=== PATIENT | male | born 1950 | race Caucasian/White ===

== ENCOUNTER → 2024-04-11 06:20 | Day surgery (SDC) | payer MEDICARE, SELFPAY ==
[2024-04-11 08:31] LABS: Glucose - Point of Care 100 mg/dl (70-99)
== END ==
LOC: GI 06:20
PROVIDERS: ATTENDING PHYSICIAN Specialist
DX: Z12.11 Encounter for screening for malignant neoplasm of colon (principal); K63.5 Polyp of colon; K57.30 Diverticulosis of large intestine without perforation or abscess without bleeding; K64.8 Other hemorrhoids; D50.9 Iron deficiency anemia, unspecified; K22.89 Other specified disease of esophagus; K31.7 Polyp of stomach and duodenum; K31.89 Other diseases of stomach and duodenum; Z86.0101 Personal history of adenomatous and serrated colon polyps; K29.50 Unspecified chronic gastritis without bleeding
CPT/HCPCS: 45380; 43239; 88305; 82962; 88342

== ENCOUNTER 2024-09-28 15:31 | Inpatient (IN) | payer MEDICARE, SELFPAY ==
[2024-09-28] VITALS (11 sets, daily range): BP systolic 93–112; BP diastolic 53–64; BMI 23.5
--- NOTE | 2024-09-28 10:48 | ED.GENMED ---
History of Present Illness
<Tiffanie Miguel PA-C - Last Filed: 09/28/24 19:20>
General
Chief Complaint: Abdominal Symptoms
Source: patient and spouse
Exam Limitations: none
Time Seen by Provider: 09/28/24 10:25
Nursing documentation reviewed up to this point in time: agreed with
History of Present Illness
History of Present Illness:
Patient is a 74-year-old male with history hypertension, diabetes presenting to the emergency department via EMS for evaluation of 5 days of diarrhea and generalized weakness. Patient's states he has had multiple episodes of nonbloody diarrhea
since Tuesday. He has had 1 episode of vomiting. She reports that he has had very little appetite and no desire to drink water. Patient does report generalized abdominal discomfort, as well. Patient denies any associated fever, chills, chest
pain, or shortness of breath. Patient denies any urinary symptoms.
She did contact his primary care who recommended that she give him Imodium which has not seemed to help.
There have been no known sick contacts. No recent antibiotic use. No undercooked seafood or well water.
Past History
<Tiffanie Miguel PA-C - Last Filed: 09/28/24 19:20>
Past History
ED Past Medical History: HTN
ED Past Surgical History: Urological
Social History
Tobacco: Non-smoker
Personal:
Living: with family
Review of Systems
<Tiffanie Miguel PA-C - Last Filed: 09/28/24 19:20>
Review of Systems
Allergies reviewed?: Yes
All Other Systems: ROS reviewed and negative except as documented in HPI and ROS
Phy Exam
<Tiffanie Miguel PA-C - Last Filed: 09/28/24 19:20>
Physical Exam
Physical Exam:
Vitals: BP soft. Afebrile
General: Patient is generally weak appearing
Skin: Warm and dry, no rashes or lesions
Head: Normocephalic, atraumatic
Eyes: Sclera nonicteric. EOMs intact. No nystagmus.
Throat: Dry mucous membranes. Protecting airway
Neck: Normal ROM, no cervical spine tenderness, no meningismus
Cardiac: Regular rate and rhythm, no murmurs.
Pulm: Normal respiratory effort, no wheezes, rales, rhonchi heard on exam.
Abdomen: Abdomen soft. Mild diffuse abdominal tenderness. No rebound tenderness or guarding.
Extremities: No evidence of cyanosis or edema. Palpable DP pulses bilaterally
Neuro: AAOx3. Grossly intact.
Psychiatric: Normal affect.
Course
<Tiffanie Miguel PA-C - Last Filed: 09/28/24 19:20>
Orders/Labs/Results
Orders:
Orders
09/28/24 10:47
Electrocardiogram (*1) Urgent
Reason for Study: Fatigue / Weakness
EKG- Treatment ONCE
09/28/24 10:54
Complete Blood Count/With Diff Urgent
Comprehensive Metabolic Panel Urgent
Magnesium Urgent
Manual Differential Urgent
09/28/24 11:35
Abdomen/Pelvis wo Contrast CT [CT Abd/pelvis Wo Iv Cont] Urgent
Comment:
Reason For Exam: Acute renal failure; diffuse abdominal pain
09/28/24 11:36
Bladder Scan- Treatment ONCE
09/28/24 11:40
Potassium Chloride [KCl] 20 meq PO NOW STA
09/28/24 11:41
Ny Placement- Treatment ONCE
Reason for insertion: Acute Kidney Injury
09/28/24 11:58
Osmolality, Random Urine Urgent
Date Specimen was Collected: 09/28/24
Time Specimen was Collected: 11:52
Comment: ADD ON
Protein/Creat Ratio (Random) Urgent
Date Specimen was Collected: 09/28/24
Time Specimen was Collected: 11:52
Comment: ADD ON
Urinalysis Reflex To Culture Urgent
Date Specimen was Collected: 09/28/24
Time Specimen was Collected: 11:52
Urine Microscopic Reflex Cult Urgent
Urine Sodium Urgent
Date Specimen was Collected: 09/28/24
Time Specimen was Collected: 11:52
Comment: ADD ON
Urine Culture Urgent
SHONDA Source: U
Specimen Description:
Date Specimen was Collected: 09/28/24
Time Specimen was Collected: 11:52
09/28/24 12:15
Blood Culture Q30M
SHONDA Source: Blood/Venous
Specimen Description:
09/28/24 12:36
Add On- LAB Urgent
Tests Added?: Osmolality random urine, urine protein/creat ratio, urine sodium
09/28/24 12:37
NEPHROLOGY CONSULT Urgent
Consulting Provider: Leobardo Madrid
Was physician already notified: Yes
09/28/24 12:45
Blood Culture Q30M
SHONDA Source: Blood/Venous
Specimen Description:
09/28/24 13:45
0.9% Sodium Chloride 1000 ml [Nss] 1,000 ml IV BOLUS
Piperacillin/Tazo 3.375 Gram [Zosyn] 3.375 gram in 50 ml IV NOW
09/28/24 14:37
Norovirus by PCR Routine
SHONDA Source: Feces/Stool
Specimen Description:
STOOL [C difficile Antigen & Toxins] Routine
SHONDA Source: Feces/Stool
Specimen Description:
Stool Culture Routine
SHONDA Source: Feces/Stool
Specimen Description:
Stool For WBC Routine
SHONDA Source: Feces/Stool
Specimen Description:
09/28/24 14:39
Admit/Transfer Patient As Directed
Co-Sign Provider:
Level of Care: Inpatient admission
Assign to:: Telemetry
Physician / Group: fausto lucia
Diagnosis: ARF 2/2 dehydration, diarrhea with acute colitis, hypoKalemia
Reason for Telemetry: Arrhythmia
Date to Stop Telemetry: 10/01/24
Time to Stop Telemetry: 11:00
Reason for Hospitalization: ARF 2/2 dehydration, diarrhea with acute colitis, hypoKalemia
Expected length of stay greater than two midnights?: Yes
ELOS- Estimated Length of Stay in days: 4
I certify the patient meets the requirements for IP care: Yes
Code Status As Directed
Resuscitation Status: Full Code
09/28/24 14:43
PRN Pain Medication Management As Directed
May give lesser potent ordered pain med per pt: Yes
preference::
Protocol:: Medication orders for pain may be administered in a
manner that supports deferring to patient preference
when the pt is:
- Requesting an ordered lesser potent pain medication.
Least to most potent pain medications are defined
as: acetaminophen < NSAID < tramadol < opioids
(morphine, oxycodone, hydromorphone).
- Requesting a lesser dose of the same medication IF
ORDERED.
- Requesting a less intrusive route of administration
if both routes are prescribed by the provider (PO <
IV).
09/28/24 Dinner
BRAT
At Your Request: Limited Participation
09/28/24 17:26
0.9% Sodium Chloride 1000 ml [Nss] 1,000 ml IV 150 mls/hr
Acetaminophen [Tylenol] 650 mg PO Q4HPRN PRN
Trimethobenzamide [Tigan] 200 mg IM Q6HPRN PRN
09/28/24 17:26
Activity As Directed
Activity Level: With Assistance
Ny Catheter [Catheter- Indwelling] As Directed
Reason for insertion: I&O's Critical Care
Comment: Acute renal failure
Assess insertion reason daily.Remove if no longer applicable: Yes
Intake/ Output As Directed
Frequency: Per unit guidelines
Precautions As Directed
Type of Precautions: Contact
Comment: Until stool studies back
Vital Signs As Directed
Frequency: Per unit guidelines
Weight As Directed
Frequency: Daily
Ot Eval And Treat Routine
Pt Eval And Treat Routine
Activity Level: With Assistance
DX Deep Vein Thrombosis Video Routine
09/28/24 18:00
Ferrous Sulfate [Feosol] 325 mg PO QPM
09/28/24 20:00
Heparin 5,000 units SC Q12
Multivitamin [Theragran] 0.5 tablet PO BID
Piperacillin/Tazo 2.25 Gram [Zosyn] 2.25 grams in 50 ml IV Q6H
09/29/24 06:00
Complete Blood Count/With Diff IN AM
Comprehensive Metabolic Panel IN AM
09/30/24 06:00
Complete Blood Count/With Diff IN AM
Comprehensive Metabolic Panel IN AM
10/01/24 06:00
Complete Blood Count/With Diff IN AM
Comprehensive Metabolic Panel IN AM
10/01/24 11:00
DC Protocol for Telemetry ONCE
10/02/24 06:00
Complete Blood Count/With Diff IN AM
Comprehensive Metabolic Panel IN AM
10/03/24 06:00
Complete Blood Count/With Diff IN AM
Comprehensive Metabolic Panel IN AM
Abnormal Lab Results
09/28/24 09/28/24
10:54 11:58
RBC 4.20 L 10^6/uL
(4.70-6.10)
Hct 36.2 L %
(39.0-52.0)
MPV 11.2 H fL
(7.4-10.4)
Abs Neuts (Manual) 6.6 H 10^3/uL
(1.4-6.5)
Segmented Neutrophils 26 L %
(42-75)
Band Neutrophils 44 H %
(0-3)
Lymphocytes (Manual) 17 L %
(20-51)
Sodium 131 L mmol/L
(135-145)
Potassium 2.8 L mmol/L
(3.5-5.1)
Chloride 92 L mmol/L
(98-107)
Carbon Dioxide 15 L mmol/L
(22-30)
BUN 145 H* mg/dl
(9-20)
Creatinine 8.1 H* mg/dL
(0.7-1.3)
Glucose 153 H mg/dl
(70-99)
Calcium 8.0 L mg/dl
(8.4-10.2)
AST 16 L U/L
(17-59)
Total Protein 6.1 L g/dl
(6.3-8.2)
Urine Ketones 1+ A
(Negative)
Ur Occult Blood Reflex 2+ A
(Negative)
Urine Bilirubin 2+ A
(Negative)
Leukocyte Esterase Rfl 3+ A
(Negative)
Urine RBC 7-10 A /HPF
(0-2)
Urine WBC (Reflex) 21-25 A /HPF
(0-5)
Urine Bacteria (Reflex) Many A
(Negative)
Urine Sodium 8 L mmol/L
(30-90)
Urine Albumin (Reflex) 2+ A
(Neg - Trace)
09/28/24 10:54
09/28/24 10:54
Vital Signs
Initial and Last Documented VS:
Initial Vital Signs
Temp Pulse Resp BP Pulse Ox
97.5 F 70 14 103/53 98
09/28/24 10:38 09/28/24 10:38 09/28/24 10:38 09/28/24 10:38 09/28/24 10:38
Last Documented Vital Signs
Temp Pulse Resp BP Pulse Ox
98.0 F 75 16 104/60 99
09/28/24 17:15 09/28/24 17:15 09/28/24 17:15 09/28/24 17:15 09/28/24 17:15
<Rodolfo Flannery MD - Last Filed: 09/28/24 13:48>
Orders/Labs/Results
Orders:
Orders
09/28/24 10:47
Electrocardiogram (*1) Urgent
Reason for Study: Fatigue / Weakness
EKG- Treatment ONCE
09/28/24 10:54
Complete Blood Count/With Diff Urgent
Comprehensive Metabolic Panel Urgent
Magnesium Urgent
Manual Differential Urgent
09/28/24 11:35
Abdomen/Pelvis wo Contrast CT [CT Abd/pelvis Wo Iv Cont] Urgent
Comment:
Reason For Exam: Acute renal failure; diffuse abdominal pain
09/28/24 11:36
Bladder Scan- Treatment ONCE
09/28/24 11:40
Potassium Chloride [KCl] 20 meq PO NOW STA
09/28/24 11:41
Ny Placement- Treatment ONCE
Reason for insertion: Acute Kidney Injury
09/28/24 11:58
Osmolality, Random Urine Urgent
Date Specimen was Collected: 09/28/24
Time Specimen was Collected: 11:52
Comment: ADD ON
Protein/Creat Ratio (Random) Urgent
Date Specimen was Collected: 09/28/24
Time Specimen was Collected: 11:52
Comment: ADD ON
Urinalysis Reflex To Culture Urgent
Date Specimen was Collected: 09/28/24
Time Specimen was Collected: 11:52
Urine Microscopic Reflex Cult Urgent
Urine Sodium Urgent
Date Specimen was Collected: 09/28/24
Time Specimen was Collected: 11:52
Comment: ADD ON
Urine Culture Urgent
SHONDA Source: U
Specimen Description:
Date Specimen was Collected: 09/28/24
Time Specimen was Collected: 11:52
09/28/24 12:15
Blood Culture Q30M
SHONDA Source: Blood/Venous
Specimen Description:
09/28/24 12:36
Add On- LAB Urgent
Tests Added?: Osmolality random urine, urine protein/creat ratio, urine sodium
09/28/24 12:37
NEPHROLOGY CONSULT Urgent
Consulting Provider: Leobardo Madrid
Was physician already notified: Yes
09/28/24 12:45
Blood Culture Q30M
SHONDA Source: Blood/Venous
Specimen Description:
09/28/24 13:45
0.9% Sodium Chloride 1000 ml [Nss] 1,000 ml IV BOLUS
Piperacillin/Tazo 3.375 Gram [Zosyn] 3.375 gram in 50 ml IV NOW
09/28/24 14:37
Norovirus by PCR Routine
SHONDA Source: Feces/Stool
Specimen Description:
STOOL [C difficile Antigen & Toxins] Routine
SHONDA Source: Feces/Stool
Specimen Description:
Stool Culture Routine
SHONDA Source: Feces/Stool
Specimen Description:
Stool For WBC Routine
SHONDA Source: Feces/Stool
Specimen Description:
09/28/24 14:39
Admit/Transfer Patient As Directed
Co-Sign Provider:
Level of Care: Inpatient admission
Assign to:: Telemetry
Physician / Group: fausto lucia
Diagnosis: ARF 2/2 dehydration, diarrhea with acute colitis, hypoKalemia
Reason for Telemetry: Arrhythmia
Date to Stop Telemetry: 10/01/24
Time to Stop Telemetry: 11:00
Reason for Hospitalization: ARF 2/2 dehydration, diarrhea with acute colitis, hypoKalemia
Expected length of stay greater than two midnights?: Yes
ELOS- Estimated Length of Stay in days: 4
I certify the patient meets the requirements for IP care: Yes
Code Status As Directed
Resuscitation Status: Full Code
09/28/24 14:43
PRN Pain Medication Management As Directed
May give lesser potent ordered pain med per pt: Yes
preference::
Protocol:: Medication orders for pain may be administered in a
manner that supports deferring to patient preference
when the pt is:
- Requesting an ordered lesser potent pain medication.
Least to most potent pain medications are defined
as: acetaminophen < NSAID < tramadol < opioids
(morphine, oxycodone, hydromorphone).
- Requesting a lesser dose of the same medication IF
ORDERED.
- Requesting a less intrusive route of administration
if both routes are prescribed by the provider (PO <
IV).
09/28/24 Dinner
BRAT
At Your Request: Limited Participation
09/28/24 17:26
0.9% Sodium Chloride 1000 ml [Nss] 1,000 ml IV 150 mls/hr
Acetaminophen [Tylenol] 650 mg PO Q4HPRN PRN
Trimethobenzamide [Tigan] 200 mg IM Q6HPRN PRN
09/28/24 17:26
Activity As Directed
Activity Level: With Assistance
Ny Catheter [Catheter- Indwelling] As Directed
Reason for insertion: I&O's Critical Care
Comment: Acute renal failure
Assess insertion reason daily.Remove if no longer applicable: Yes
Intake/ Output As Directed
Frequency: Per unit guidelines
Precautions As Directed
Type of Precautions: Contact
Comment: Until stool studies back
Vital Signs As Directed
Frequency: Per unit guidelines
Weight As Directed
Frequency: Daily
Ot Eval And Treat Routine
Pt Eval And Treat Routine
Activity Level: With Assistance
DX Deep Vein Thrombosis Video Routine
09/28/24 18:00
Ferrous Sulfate [Feosol] 325 mg PO QPM
09/28/24 20:00
Heparin 5,000 units SC Q12
Multivitamin [Theragran] 0.5 tablet PO BID
Piperacillin/Tazo 2.25 Gram [Zosyn] 2.25 grams in 50 ml IV Q6H
09/29/24 06:00
Complete Blood Count/With Diff IN AM
Comprehensive Metabolic Panel IN AM
09/30/24 06:00
Complete Blood Count/With Diff IN AM
Comprehensive Metabolic Panel IN AM
10/01/24 06:00
Complete Blood Count/With Diff IN AM
Comprehensive Metabolic Panel IN AM
10/01/24 11:00
DC Protocol for Telemetry ONCE
10/02/24 06:00
Complete Blood Count/With Diff IN AM
Comprehensive Metabolic Panel IN AM
10/03/24 06:00
Complete Blood Count/With Diff IN AM
Comprehensive Metabolic Panel IN AM
Abnormal Lab Results
09/28/24 09/28/24
10:54 11:58
RBC 4.20 L 10^6/uL
(4.70-6.10)
Hct 36.2 L %
(39.0-52.0)
MPV 11.2 H fL
(7.4-10.4)
Abs Neuts (Manual) 6.6 H 10^3/uL
(1.4-6.5)
Segmented Neutrophils 26 L %
(42-75)
Band Neutrophils 44 H %
(0-3)
Lymphocytes (Manual) 17 L %
(20-51)
Sodium 131 L mmol/L
(135-145)
Potassium 2.8 L mmol/L
(3.5-5.1)
Chloride 92 L mmol/L
(98-107)
Carbon Dioxide 15 L mmol/L
(22-30)
BUN 145 H* mg/dl
(9-20)
Creatinine 8.1 H* mg/dL
(0.7-1.3)
Glucose 153 H mg/dl
(70-99)
Calcium 8.0 L mg/dl
(8.4-10.2)
AST 16 L U/L
(17-59)
Total Protein 6.1 L g/dl
(6.3-8.2)
Urine Ketones 1+ A
(Negative)
Ur Occult Blood Reflex 2+ A
(Negative)
Urine Bilirubin 2+ A
(Negative)
Leukocyte Esterase Rfl 3+ A
(Negative)
Urine RBC 7-10 A /HPF
(0-2)
Urine WBC (Reflex) 21-25 A /HPF
(0-5)
Urine Bacteria (Reflex) Many A
(Negative)
Urine Sodium 8 L mmol/L
(30-90)
Urine Albumin (Reflex) 2+ A
(Neg - Trace)
09/28/24 10:54
09/28/24 10:54
Vital Signs
Initial and Last Documented VS:
Initial Vital Signs
Temp Pulse Resp BP Pulse Ox
97.5 F 70 14 103/53 98
09/28/24 10:38 09/28/24 10:38 09/28/24 10:38 09/28/24 10:38 09/28/24 10:38
Last Documented Vital Signs
Temp Pulse Resp BP Pulse Ox
98.0 F 75 16 104/60 99
09/28/24 17:15 09/28/24 17:15 09/28/24 17:15 09/28/24 17:15 09/28/24 17:15
<Tiffanie Miguel PA-C - Last Filed: 09/28/24 19:20>
MDM/Problems Addressed
Differential Diagnosis Includes:
Not limited to: Acute dehydration, electrolyte imbalance, viral gastroenteritis, UTI, pyelonephritis, etc.
MDM/Problems Addressed:
74-year-old male with history as documented presenting with generalized weakness after 4 days of profuse diarrhea. No known fevers or urinary symptoms. BP soft, otherwise vital signs stable. Physical exam as above. Patient generally weak
appearing with dry mucous membranes. Abdomen benign. No focal neurologic deficits. Cardio/pulmonary assessment unremarkable. Will send basic labs, magnesium, urinalysis. Will obtain CT imaging abdomen/pelvis. Will give IV fluids.
Update: Labs resulted. Significant for acute renal failure with creatinine 8.1 and elevated BUN likely secondary to acute dehydration from GI losses. Patient also has a metabolic acidosis with hypokalemia of 2.8. CBC significant for bandemia.
Bladder scan did not suggest any significant urinary retention�although given evidence of acute renal failure�a Ny catheter was placed. Will obtain CT abdomen/pelvis without contrast to ensure no obstructive process contributing to acute renal
failure. Patient has been borderline hypotensive -we will continue IV fluids and start Zosyn to cover for infectious process in the setting of bandemia. Will give 20 p.o. potassium. Nephrology consult placed.
Update: CT findings consistent with colitis, no evidence of urinary obstruction. Patient will require admission given acute renal failure and metabolic acidosis likely secondary to GI losses from profound diarrheal illness. Patient accepted to
hospital service in stable condition.
Chronic conditions affecting care:
Hypertension, diabetes
Acute Exacerbation and/or Progression of Chronic Illness:
Acutely hyperglycemic
<Tiffanie Miguel PA-C - Last Filed: 09/28/24 19:20>
*Radiology
Radiology exam reviewed: preliminary read by ED provider (CT reviewed by nm-no ureteral obstruction) and radiology read reviewed
*Pulse Oximetry
Patient hypoxic: no
*EKG
Interpreted by ED Provider?: Yes
EKG Intrepretation Date: 09/28/24
Interpretation: abnormal
Comparison EKG: changes noted
Heart Rate: 67
Rate: normal
Rhythm: sinus, PVC's and sinus arrhythmia
[place]: left axis deviation
Interval: first degree heart block and long QT
QRS Pattern: normal QRS
Ischemia: non-specific ST changes
*[employer] Interpretation
Rate: normal
Interpretation: normal
Heart Rate: 74
Rhythm: sinus
*Critical Care Note
Total Time (30-74mins, 75-104mins- exclusive of procedures): Not Applicable
<Tiffanie Miguel PA-C - Last Filed: 09/28/24 19:20>
Patient Management
Discussion with other providers: Hospitalist and [employer]el[employer] (Case discussed with nephrology)
Escalation/DeEscalation of care consider admission/obs:
Admit indicated
ED Attending Note
<Tiffanie Miguel PA-C - Last Filed: 09/28/24 19:20>
-
Portions of this chart may have been created with voice recognition software.� Occasional wrong word or��sound alike� substitutions may have occurred due to the inherent limitations of voice recognition software.
<Rodolfo Flannery MD - Last Filed: 09/28/24 13:48>
ED Attending Note
Patient seen and examined by attending physician: Yes
ED Attending Note:
I have seen and evaluated the patient with a [id number] encounter. I have spoken to the advance practicer provider and involved in the medical history, the physical exam, medical decision making.
Evaluation and management service: agree unless noted differently below.
Results interpretation: agree unless noted differently below.
Focused HPI: 74-year-old male with history as noted presents with his for evaluation of increased weakness and confusion in the setting of recent diarrheal illness. Patient has had profuse watery diarrhea x 5 days. Nonbloody. They trialed
Imodium and patient vomited after taking Imodium and has continued to have diarrhea. No significant abdominal pain, no flank pain. Today was increasingly confused which prompted to finally bring him to the ER.
Physical exam: Awake and alert, oriented for me. No distress. Hypertensive otherwise acceptable vital signs. Abdomen soft nontender. Mucous membranes dry.
Medical Decision Makin-year-old male presents for evaluation of increased weakness and confusion in the setting of profuse diarrhea. Vitals and exam as above. Suspect that he is acutely dehydrated. Labs were sent off including a CBC which
showed significant bandemia. Blood culture sent off. CMP shows renal failure with a creatinine of 8 and a BUN of 145 likely from profound dehydration. Bladder scan shows no retention. Will place Ny catheter to monitor I's and O's closely in
the setting of renal failure. Hypokalemic to 2.8 from GI losses�will replete. CT abdomen pelvis appears to show diffuse colitis no clear ureteral obstruction. Read pending. Will plan to cover with antibiotics given hypotension and bandemia.
Continue fluid resuscitation. Consult to nephrology. Admission to hospitalist.
Discharge Plan
Departure
Patient Disposition: Admit
Date of Disposition: 09/28/24
Time of Disposition: 13:46
Presentation/result/management discussed w/ accepting MD/DO: Hospitalist
Discharge Problem:
Acute renal failure, Hypokalemia, Colitis
Interventions
Interventions:
*Risk Screen - Suicide Last Done: 09/28/24 10:38
*General Assessment Last Done: 09/28/24 10:38
*Neglect/Abuse Screening Last Done: 09/28/24 10:38
*ED- Fall Risk Assessment Last Done: 09/28/24 10:38
*ED COVID-19 Vaccine History Last Done: 09/28/24 10:38
*Nursing Disposition Last Done: 09/28/24 17:08
AG-Ozopuc-Vdzpocoebw Assessment Last Done: 09/28/24 10:38
Discharge Date and Time
Discharge Date/Time: 09/28/24 17:09
[2024-09-28 11:19] LABS: Hematocrit 36.2 % (39.0-52.0); Mean Corp Hgb Conc. 35.9 g/dL (33.0-37.0); Mean Corpuscular Volume 86.2 fL (80.0-94.0); Mean Platelet Volume 11.2 fL (7.4-10.4); Platelet Count 215 10^3/uL (130-400); Red Cell Dist. Width 13.1 % (11.5-14.5); White Blood Cell Count 9.5 10^3/uL (4.8-10.8)
[2024-09-28 11:31] LABS: ALT (SGPT) 15 U/L (0-50); AST (SGOT) 16 U/L (17-59); Albumin 3.8 g/dl (3.5-5.0); Alkaline Phosphatase 60 U/L (38-126); Carbon Dioxide 15 mmol/L (22-30); Chloride 92 mmol/L (98-107); Estimated Creatinine Clearance 9 ml/min; Glucose 153 mg/dl (70-99); Potassium 2.8 mmol/L (3.5-5.1); Sodium 131 mmol/L (135-145); Total Bilirubin 0.7 mg/dl (0.2-1.3); Total Protein 6.1 g/dl (6.3-8.2); eGFR 6.34
[2024-09-28 11:49] LABS: Blood Urea Nitrogen 145 mg/dl (9-20)
[2024-09-28] MEDS: KCL 20 MEQ PO (11:55)
[2024-09-28 12:06] LABS: Absolute Neutrophils -Man Diff 6.6 10^3/uL (1.4-6.5); Atypical Lymphocytes 1 %; Band Neutrophils 44 % (0-3); Lymphocytes 17 % (20-51); Metamyelocytes 3 % (-); Monocytes 9 % (2-9); Normal RBC Morphology Yes; Platelets Checked Yes; Segmented Neutrophils 26 % (42-75); Total Cells Counted 100
[2024-09-28 12:28] LABS: Urine Albumin 2+ (Neg - Trace); Urine Bilirubin 2+ (Negative); Urine Character Cloudy (Clear); Urine Color Yellow; Urine Glucose Negative (Negative); Urine Ketone 1+ (Negative); Urine Leukocyte 3+ (Negative); Urine Nitrite Negative (Negative); Urine Occult Blood 2+ (Negative); Urine Urobilinogen 1+ (Neg - 1+)
[2024-09-28 13:35] LABS: Osmolality Urine 325 mOsm/kg (300-900)
[2024-09-28] MEDS: ZOSYN 50 IV ×2 (13:52→21:05)
[2024-09-28] MEDS: NSS 1000 IV ×2 (13:53→18:19)
--- NOTE | 2024-09-28 13:54 | HPS.HSE ---
Addendum entered and electronically signed by Shira Gaston DO 09/28/24 16:28:
The patient has been seen and examined. I have reviewed and discussed the patient with Nuzhat as per below, and I agree with her history and physical and assessment and plan of care as per below.
The patient is a 74-year-old gentleman complaining of severe diarrhea approximately 10 times per day that is brown and watery over the past 5 days. He denies any recent travel nor exposure to anyone's been sick. His noticed his blood pressure
was in the 70s yesterday. He is also been experiencing anorexia and generalized weakness with some generalized abdominal discomfort.
His blood pressure in the ED has been low 93/58 mmHg
ED treatment-20 mill equivalents of potassium, IV Zosyn, IV fluids
Physical exam
The patient is lying in bed and ill-appearing, dry mucous membranes, regular rate and rhythm no murmurs rubs or gallops, lungs clear to auscultation bilaterally no wheezes rales rhonchi, benign abdomen without peritoneal signs
Labs remarkable for potassium 2.8 creatinine 8.1 CO2 15 BUN [address] of the abdomen pelvis shows dilated air and fluid-filled loops of small bowel suggesting enterocolitis versus adynamic ileus
Assessment and plan of care
# Acute renal failure is likely secondary to severe dehydration from massive amounts of diarrhea, prerenal azotemia, creatinine 8.1 with underlying baseline renal function less than 1.0
- Nephrology consultation is appreciated to solve the patient in the ED
- Will continue IV fluids at 150 mL/h and repeat labs in the morning. Maintain Ny catheter, intake and output monitoring, and avoid nephrotoxic agents, renally adjust IV Zosyn
# Acute severe diarrhea, concern is for infectious enterocolitis
- Continue IV fluids and IV Zosyn
- Monitor symptoms, treat symptomatically and monitor laboratory closely
# Hypokalemia
-Replete potassium, monitor labs labs and check magnesium
# See below for additional assessment and plan
Original Note:
Family Physician
-
Family Physician: Miguel Nevarez
Chief Complaint
-
Diarrhea x 5 days
History of Present Illness
74-year-old male complaining of 5 days of diarrhea 8-10 times a day brown watery with generalized weakness. His states yesterday there was some mucus in his watery diarrhea, but no blood . He has had 1 episode of vomiting 2 hours after taking
Imodium 2 tablets yesterday. He also took 1 Imodium in the evening. He has had persistent hiccups since yesterday. He also has very little appetite and no desire to drink fluids and complains of generalized abdominal discomfort, but increased to
the lower right pelvis. He denies fever, chills, chest pain, palpitations, cough, shortness of breath, urinary symptoms, PCP. His reports she contacted his primary care provider who recommended Imodium which has not seemed to help. He has
had no recent antibiotic use or raw foods or travel. His states she has prepared all their meals they have not eaten out they have not eaten any fish during Lent she states. She is also not sick with any diarrheal symptoms. In the ER he was
noted to be in acute renal failure secondary to dehydration with CT showing colitis. He has past medical history of hypertension, DM2, BPH, ex-smoker,Bladder surgery with precancerous lesions removed.
Medical History
Past Medical History
Past Medical History: Reports Other
Additional Past Medical History:
HTN
DM 2
BPH
Bladder surgery with precancerous lesions removed
Past Surgical History: Reports Other
Additional Past Surgical History:
Bladder surgery with precancerous lesions removed
Social History
Tobacco: Non-smoker
Alcohol: Occasional (1 glass of wine on the weekends)
Drug: None
Personal:
Living: With Family ()
Employment: Retired
Family History
Family History: Not pertinent
Allergies / Home Medications
Allergies reflects when Allergies were last updated in [facility].
Home Medications with original date entered in [facility]
Allergy/Medication List:
Allergies
Allergy/AdvReac Type Severity Reaction Status Date / Time
No Known Allergies Allergy Verified 01/14/19 11:34
Home Medications
ascorbic acid (vitamin C) 500 mg tablet (Vitamin C) 500 mg PO BID 09/28/24
aspirin 81 mg tablet,delayed release 81 mg PO DAILY 09/28/24
ferrous sulfate 250 mg (50 mg iron) tablet,extended release 250 mg PO QPM 09/28/24
flaxseed oil-omega 3,6,9-fatty acids 1,300 mg-670 mg-155 mg capsule 1 cap PO DAILY 09/28/24
glucosamine sulf dipot chlr,msm,chond 550 mg-C 30 mg-celeste 1 mg capsule (Glucosamine Chondroitin) 1 cap PO DAILY 09/28/24
losartan 100 mg tablet 100 mg PO DAILY 09/28/24
lovastatin 10 mg tablet 10 mg PO QPM 09/28/24
tamsulosin 0.4 mg capsule 0.4 mg PO QPM 09/28/24
therapeutic multivitamin 0.5 tab PO BID 09/28/24
Review of Systems
-
History Source: Patient and Family ()
A 12 point ROS was completed and negative except as noted: Yes
Constitutional: Reports Fatigue; Denies Fever or Chills
EENT: Denies Sore Throat or Runny Nose
Respiratory: Denies Cough or Trouble Breathing
Cardiac: Denies Chest Pain, Diaphoresis, Palpitations or Syncope
Abdomen/GI: Reports Abdominal Pain (Generalized but increased right lower quadrant), Nausea, Vomiting (X 1 episode yesterday 09/27/2024) and Diarrhea (8-10 times a day watery brown x 5 days); Denies Bloody Stools or Black Stools
: Reports Dark Urine (Brown in color); Denies Dysuria, Frequency, Flank Pain or Difficulty Voiding
Musculoskeletal: Denies Joint Pain or Edema
Skin: Denies Itching or Rash
Neurological: Reports Weakness (Generalized); Denies Dizzy or Headache
Endocrine: Reports No Symptoms
Hematologic/Lymphatic: Reports No Symptoms
Psych: Reports Calm
Physical Exam
Vital Signs
Vital Signs
Temp Pulse Resp BP Pulse Ox
97.5 F 72 12 112/62 98
09/28/24 10:38 09/28/24 12:00 09/28/24 12:00 09/28/24 12:49 09/28/24 10:38
Physical Exam
General: Comfortable and Conversant; No Pain, Fever or Chills
HEENT: NormoCephalic, Anicteric, PERRLA, [place] Conjunctivae, No Ptosis and Other (Dry oral mucosa)
Respiratory: Clear; No Wheezes, Rales or Rhonchi
Cardiac: S1/S2 and Regular Rhythm; No Murmur, Rub, Gallop or Peripheral Edema
Breast: Deferred by me
GI: Soft, Non Distended, Normal Bowel Sounds and Tender (Generalized but increased right lower quadrant)
Rectal: Deferred by Provider
Genito-urinary: Deferred by me
Musculoskeletal: No Clubbing, No Cyanosis and No Edema
Skin: Warm and Dry; No Rash
Neuro: AO x 3, No Motor Deficits, Nonfocal/grossly intact, Cranial Nerves Intact and No Sensory Deficits; No Slurred Speech, Facial Droop, Tremors or Sedated
Psych: Calm
Laboratory Results
-
09/28/24 10:54
09/28/24 10:54
Laboratory Results
Total Bilirubin 0.7 mg/dl (0.2-1.3) 09/28/24 10:54
AST 16 U/L (17-59) L 09/28/24 10:54
ALT 15 U/L (0-50) 09/28/24 10:54
Alkaline Phosphatase 60 U/L (38-126) 09/28/24 10:54
Data Reviewed
-
CT Scan: Report Reviewed by me
Lab Data: Labs Reviewed by me
Impression/Plan
-
Impression/plan:
Admit to telemetry
#Acute renal failure 2/2 diarrheal losses/dehydration
# hx BPH
- Creat 8.1/bun 145-baseline 0.9
-IV NSS 1 L given by ER, continue IV NSS 100 cc/h
- Consult nephrology
- Continue Ny catheter to monitor intake output
-Hold Flomax due to hypotension
-PT/OT/case management consult
CT abdomen pelvis without IV contrast:
1. Dilated air and fluid-filled loops of small bowel, mainly involving the mid to distal small bowel. Fluid and air present within the colon
without collapse, although without significant distention. Suggestion of mild wall thickening of colonic and small bowel loops.
Findings would be suggestive of enterocolitis. Differential consideration of adynamic ileus.
No convincing evidence for bowel obstruction or free intraperitoneal air.
2. Small hyperdense cysts present within each kidney. Small left-sided nephroliths.
3. Ny catheter within the bladder. Calcification within the left side of the bladder compatible with bladder calculus.
4. Small pericardial effusion, mainly anteriorly, measuring up to 1.5 cm in thickness.
#Hypotension secondary to dehydration/diarrheal losses
#Hx HTN�benign
BP 93/58, patient given IV NSS 1 L in ER
-Continue IV NSS 100 cc/h
- Hold Diovan
#Diarrhea likely secondary to Acute colitis viral versus bacterial
WBC 9.2 with 44% band neutrophil count
Will check stool studies, norovirus, stool culture, stool WBC, C. difficile
-Precautions until stool studies back
- IV Zosyn 2.25 g Q6 renal dose
-IM Tigan if any nausea vomiting
- Brat diet
#Hypokalemia secondary to diarrheal losses
- K2.8
- Patient given potassium chloride 20 mEq due to ARF creat 8
- Follow BMP
EKG: Sinus rhythm with sinus arrhythmia, first degree AV block occasional PVC heart rate 67 bpm, QTc 494 MS, Inferior infarct age undetermined
# Prolonged QTc-QTc 494 MS
-Hold prolonging QTc agents
-Will have Tigan available for nausea vomiting
#DM2
- Accu-Cheks with SSI check HgbA1c
Patient discontinued metformin in February due to being told it caused iron deficiency
#Hx iron deficiency
-Continue iron supplement
#Bladder surgery with precancerous lesions removed
VTE prophylaxis
Subcu heparin
Full code
[2024-09-28 13:55] LABS: Protein/creatinine Ratio 0.3; Urine Protein 44 mg/dl; Urine Sodium 8 mmol/L (30-90)
[2024-09-28 14:18] LABS: Urine Squamous Cell 16-20 /LPF (Few)
[2024-09-28 14:19] LABS: Urine Amorphous Seen; Urine Urothelial Cell 26-30 /LPF (FEW)
[2024-09-28 14:24] LABS: Urine White Cell 21-25 /HPF (0-5)
--- NOTE | 2024-09-28 14:24 | CM ---
Patient seen in ED with . Patient stated that could answer questions. Patient lives with in a 2 story home with 2 steps to enter. Patient PCP is Dr. Moss and he uses [facility] in [facility]. Patient stated that he has not had VN
supports previously, PA in room to complete medical assessment. Patient and with no further questions. CM will continue to follow for discharge planning needs.
Plan; home with VN vs home with no needs.
[2024-09-28 14:25] LABS: Urine Bacteria Many (Negative)
--- NOTE | 2024-09-28 15:29 | W.CON.NEPH ---
Consultation
-
Date/Time Consultation Requested: September 28, 2024 at 1 PM
Date/Time Consultation Performed: September 28, 2024 at 3 PM
Requesting Provider: Dr. Miguel
Performing Provider: Dr. Madrid
Reason for Consultation: Acute kidney injury
Medical History
-
Chief Complaint: Acute kidney injury
History of Present Illness:
74-year-old male with history hypertension, diabetes presenting to the emergency department via EMS for evaluation of 5 days of diarrhea and generalized weakness. Patient's states he has had multiple episodes of nonbloody diarrhea since
Tuesday. He has had 1 episode of vomiting. Diarrhea unresponsive to Imodium. No NSAID use. He has not eaten anything out of the ordinary and cooks all his food at home.
He had an endoscopy and colonoscopy in the last couple years.
He is found to have significant azotemia and acute kidney injury and therefore renal consult.
BUN 145 and creatinine 8.1
Past Medical History
Hypertension, diabetes BPH bladder lesion removed
Social History
Tobacco: Non-Smoker
Alcohol: Occasional
Family History
Family History: Not Pertinent
Allergies / Home Medications
Allergy/AdvReac Type Severity Reaction Status Date / Time
No Known Allergies Allergy Verified 01/14/19 11:34
�Medication �Instructions �Recorded �Confirmed �Type
ascorbic acid (vitamin C) 500 mg 500 mg PO BID 09/28/24 09/28/24 History
tablet (Vitamin C)
aspirin 81 mg tablet,delayed 81 mg PO DAILY 09/28/24 09/28/24 History
release
ferrous sulfate 250 mg (50 mg 250 mg PO QPM 09/28/24 09/28/24 History
iron) tablet,extended release
flaxseed oil-omega 3,6,9-fatty 1 cap PO DAILY 09/28/24 09/28/24 History
acids 1,300 mg-670 mg-155 mg
capsule
glucosamine sulf dipot 1 cap PO DAILY 09/28/24 09/28/24 History
chlr,msm,chond 550 mg-C 30 mg-celeste
1 mg capsule (Glucosamine
Chondroitin)
losartan 100 mg tablet 100 mg PO DAILY 09/28/24 09/28/24 History
lovastatin 10 mg tablet 10 mg PO QPM 09/28/24 09/28/24 History
tamsulosin 0.4 mg capsule 0.4 mg PO QPM 09/28/24 09/28/24 History
therapeutic multivitamin 0.5 tab PO BID 09/28/24 09/28/24 History
Review of Systems
-
Weakness, diarrhea nausea and vomiting with decreased urine output
All other systems: Negative unless noted
Physical Exam
Vital Signs
Vital Signs
Temp Pulse Resp BP Pulse Ox
97.5 F 73 14 93/58 100
09/28/24 10:38 09/28/24 14:15 09/28/24 14:15 09/28/24 13:00 09/28/24 14:15
Lab Results
WBC 9.5 10^3/uL (4.8-10.8) 09/28/24 10:54
RBC 4.20 10^6/uL (4.70-6.10) L 09/28/24 10:54
Hgb 13.0 g/dL (13.0-18.0) 09/28/24 10:54
Hct 36.2 % (39.0-52.0) L 09/28/24 10:54
Plt Count 215 10^3/uL (130-400) 09/28/24 10:54
Sodium 131 mmol/L (135-145) L 09/28/24 10:54
Potassium 2.8 mmol/L (3.5-5.1) L 09/28/24 10:54
Chloride 92 mmol/L (98-107) L 09/28/24 10:54
Carbon Dioxide 15 mmol/L (22-30) L 04/04/25 10:54
BUN 145 mg/dl (9-20) H* 09/28/24 10:54
Creatinine 8.1 mg/dL (0.7-1.3) H* 09/28/24 10:54
eGFR 6.34 09/28/24 10:54
Glucose 153 mg/dl (70-99) H 09/28/24 10:54
Calcium 8.0 mg/dl (8.4-10.2) L 09/28/24 10:54
Albumin 3.8 g/dl (3.5-5.0) 09/28/24 10:54
Physical Exam
General no acute distress
HEENT no cephalic atraumatic extraocular muscle intact no scleral icterus no JVD neck supple
lungs clear to auscultation bilateral
heart regular S1-S2 positive
abdomen soft nontender positive bowel sounds
extremities no edema pulses present bilateral
Neurologically nonfocal alert and oriented x 3
Skin no lesions no abrasions no petechiae
Psych normal affect no bizarre behavior
Data Reviewed
-
CT Scan: Image Personally Visualized and interpreted
Labs: Labs Reviewed by me, Discussed with Patient and Discussed with Family
Assessment/Plan
-
74-year-old male with history hypertension, diabetes presenting to the emergency department via EMS for evaluation of 5 days of diarrhea and generalized weakness. Patient's states he has had multiple episodes of nonbloody diarrhea since
Tuesday. He has had 1 episode of vomiting.
BUN 145 creatinine 8
Impression.
Acute kidney injury likely secondary to diarrhea and prerenal.
Diarrhea enterocolitis on CAT scan.
Diabetes.
Hypertension.
Plan
Status post 2 L of normal saline.
Urine sodium less than 8, protein creatinine ratio 0.3 white blood cells 21-25 with leuk esterases
Continue normal saline at 150 cc/h.
Repeat labs in the morning.
Maintain Ny catheter.
Antibiotics
No acute need for dialysis at this time although did discuss this with the patient.
[2024-09-28] MEDS: NSS IV ×2 (18:31→23:54)
[2024-09-28] MEDS: FEOSOL PO (18:32)
[2024-09-28] MEDS: HEPARIN 5000 UNITS SC (21:05)
[2024-09-28] MEDS: THERAGRAN 0.5 TABLET PO (21:06)
[2024-09-29] VITALS (23 sets, daily range): BP systolic 85–136; BP diastolic 45–89; PULSE 84; O2SAT 97
[2024-09-29] MEDS: NSS 1000 IV ×2 (00:19→07:23)
[2024-09-29] MEDS: ZOSYN 50 IV ×4 (02:06→19:52)
--- NOTE | 2024-09-29 03:31 | W.PN.UPDATE ---
Addendum entered and electronically signed by ANGEL Adame 09/29/24 06:19:
k 2.4--> will give 40 kcl po x1 . was going to order iv kcl as well but given renal function order d/c'd.
co2 10--> due to GI losses. pt with numerous bms since admit. ivf nss @175. Need to replenish kcl before potentially adding bicarb gtt.
Original Note:
Update Note
Progress Note Update
RN noted rhythm change on tel monitor NSR to afib- controlled rate 80s
Denies hx of afib. Likely driven by current illness.
Has electrolyte abnormalities on admit. Will recheck now.
Will consult cardiology
[2024-09-29 03:40] LABS: APTT 30.4 Sec (23.4-35.0)
[2024-09-29 03:47] LABS: Calcium 7.4 mg/dl (8.4-10.2); Carbon Dioxide 10 mmol/L (22-30); Chloride 99 mmol/L (98-107); Estimated Creatinine Clearance 8 ml/min; Glucose 118 mg/dl (70-99); Potassium 2.4 mmol/L (3.5-5.1); Sodium 134 mmol/L (135-145); eGFR 5.98
[2024-09-29 03:55] LABS: Blood Urea Nitrogen 149 mg/dl (9-20)
[2024-09-29] MEDS: SODIUM BICARBONATE 650 MG PO ×2 (04:27→09:08)
[2024-09-29] MEDS: KCL 40 MEQ PO ×4 (04:27→19:52)
--- NOTE | 2024-09-29 06:25 | W.PN.HOSP.TC ---
Today's Communication/Plan
-
see a/p
Assessment / Plan
Assessment / Plan
Physical Exam
General: no acute distress resting comfortably in bed
HEENT: NormoCephalic, Anicteric, PERRLA, [place] Conjunctivae, Symmetric face, no facial droop
Respiratory: Clear; No Wheezes, Rales or Rhonchi
Cardiac: S1/S2 Irregularly Irregular rhythm
GI: Soft, Non Distended, Normal Bowel Sounds and Tender Generalized but increased right lower quadrant
Musculoskeletal: No Clubbing, No Cyanosis and No Edema
Skin: Warm and Dry; No Rash
Neuro: AO x 2 paucity of speech but fluent coherent when speaking, flat affect, symmetric strength upper and lower ext's, Left handed per patient
Psych: Calm
74M hx HTN DM BPH ex-smoker bladder sx for precancerous lesions here with diarrhea and acute renal failure. Developed new onset afib overnight though rate controlled. Severe electrolyte abn's hypokalemia and metabolic acidosis. AMS concerning for
metabolic encephalopathy (most likely) vs absence sz d/o vs stroke. Hypotensive/soft pressures, patient admitted to Tele was transferred to IMU for closer monitoring.
#Acute renal failure 2/2 diarrheal losses/dehydration
# hx BPH
#Metabolic Acidosis
#Severe Hypokalemia
-monitor and replete K as necessary
- Consult nephrology appreciated patient may require HD this hospitalization, IVF NS switched to Bicarb gtt
- Continue Ny catheter to monitor intake output
-Hold Flomax due to hypotension
-PT/OT appreciated SNF rehab, shuffling gait noted
CT abdomen pelvis without IV contrast:
1. Dilated air and fluid-filled loops of small bowel, mainly involving the mid to distal small bowel. Fluid and air present within the colon
without collapse, although without significant distention. Suggestion of mild wall thickening of colonic and small bowel loops.
Findings would be suggestive of enterocolitis. Differential consideration of adynamic ileus.
No convincing evidence for bowel obstruction or free intraperitoneal air.
2. Small hyperdense cysts present within each kidney. Small left-sided nephroliths.
3. Ny catheter within the bladder. Calcification within the left side of the bladder compatible with bladder calculus.
4. Small pericardial effusion, mainly anteriorly, measuring up to 1.5 cm in thickness.
#Hypotension secondary to dehydration/diarrheal losses
#Hx HTN�benign
hold Losartan
IVF as above
low dose midodrine scheduled w/ holding parameters
Levophed prn (has not required)
#Diarrhea likely secondary to Acute colitis viral versus bacterial
-follow stool studies
-Norovirus and Cdiff neg
- IV Zosyn 2.25 g Q6 renal dose
-IM Tigan prn nausea vomiting
-Low Residue Diet
#AMS
#Likely Toxic Metabolic Encephalopathy vs absence sz vs stroke
09/29 Examined multiple times throughout the day d/t prior assessments/reports of left sided weakness, facial droop, unresponsiveness, sitting in chair with blank stare after participating with PT/OT. Consistently alert conversant (though paucity
of speech) with symmetric face and strength noted throughout remainder of day
CT head appreciated no acute abn's
Neuro consult appreciated Parkinsonism, question possible LBD, cont home ASA 81 mg daily, Brain MRI pending
#New Onset Afib rate controlled
Cardio eval appreciated no plan for rhythm control at this time during acute illness, oral anticoagulation recommended but holding pending rule out stroke.
# Prolonged QTc-QTc 494 MS
-minimize/avoid us of QT prolonging agents as possible
#reported hx DM2
- sliding scale
-A1c 6.1 prediabetic
#Hx iron deficiency
-Continue iron supplement
#Bladder surgery with precancerous lesions removed
VTE prophylaxis Subcu heparin
Full code
Discussed with patient and patient's Luna
I spent a total of 60 minutes with the patient or on the floor. More than 50% of this time involved counseling and coordination of care.
Anticipated Discharge: > 48 hours
Subjective/Interval History
-
Date of Service: September 29, 2024
No acute distress resting comfortably in bed. Flat affect. AOx2 disoriented to time. Denies pain but reports poor appetite. Speaks minimally but fluently and coherent. Examined multiple times throughout the day d/t prior assessment/reports of
left sided weakness, facial droop, unresponsiveness, sitting in chair with blank stare after participating with PT/OT. Consistently alert conversant (though paucity of speech) with symmetric face and strength.
Objective Data
-
Labs:
Laboratory Results
09/29/24 09/29/24
02:51 06:00
WBC Pending
Hgb Pending
Hct Pending
Plt Count Pending
APTT 30.4
Sodium 134 L Pending
Potassium 2.4 L* Pending
Chloride 99 Pending
Carbon Dioxide 10 L* Pending
BUN 149 H* Pending
Creatinine 8.5 H* Pending
Glucose 118 H Pending
Calcium 7.4 L Pending
Total Bilirubin Pending
AST Pending
ALT Pending
Alkaline Phosphatase Pending
Vital Signs:
Vital Signs
Temp Pulse Resp BP Pulse Ox
97.8 F 80 17 100/80 95
09/29/24 03:24 09/29/24 03:24 09/29/24 03:24 09/29/24 03:24 09/29/24 03:24
[2024-09-29] MEDS: KCL 270 MEQ IV ×3 (07:41→19:53)
[2024-09-29] MEDS: HEPARIN 5000 UNITS SC ×2 (09:05→19:52)
[2024-09-29] MEDS: THERAGRAN 0.5 TABLET PO ×2 (09:07→19:52)
[2024-09-29 09:47] LABS: Hematocrit 35.3 % (39.0-52.0); Hemoglobin 12.5 g/dL (13.0-18.0); Mean Corp Hgb Conc. 35.4 g/dL (33.0-37.0); Mean Corpuscular Hgb 30.4 pg (27.0-31.0); Mean Corpuscular Volume 85.9 fL (80.0-94.0); Mean Platelet Volume 10.8 fL (7.4-10.4); Platelet Count 201 10^3/uL (130-400); Red Blood Cell Count 4.11 10^6/uL (4.70-6.10); Red Cell Dist. Width 13.1 % (11.5-14.5); White Blood Cell Count 10.5 10^3/uL (4.8-10.8)
[2024-09-29 10:00] LABS: ALT (SGPT) 14 U/L (0-50); AST (SGOT) 14 U/L (17-59); Albumin 2.9 g/dl (3.5-5.0); Alkaline Phosphatase 54 U/L (38-126); Calcium 7.4 mg/dl (8.4-10.2); Carbon Dioxide 12 mmol/L (22-30); Chloride 104 mmol/L (98-107); Estimated Creatinine Clearance 8 ml/min; Glucose 107 mg/dl (70-99); Magnesium 2.1 mg/dl (1.6-2.3); Potassium 2.7 mmol/L (3.5-5.1); Sodium 135 mmol/L (135-145); Total Bilirubin 0.5 mg/dl (0.2-1.3); Total Protein 5.1 g/dl (6.3-8.2); eGFR 6.07
[2024-09-29 10:16] LABS: Blood Urea Nitrogen 144 mg/dl (9-20)
[2024-09-29 11:06] LABS: Glucose - Point of Care 130 mg/dl (70-99)
--- NOTE | 2024-09-29 11:36 | PTCARENOTE ---
Pt noted this morning with slight L sided weakness after being up and working with Therapy. Pt was positioned in the chair leaning to the L side. NIH completed at the bedside. L side hand grasp noted to be weaker than the right. Findings confirmed
with other RN on the floor. NIH otherwise unremarkable. Able to follow commands. Oriented to person, place. Vitals all WNL. Hypotension at baseline. MD notified at this time. Pt to be seen by MD. Plan of care ongoing.
--- NOTE | 2024-09-29 11:49 | CON.CAR ---
Addendum entered and electronically signed by Kimber Olguin MD 09/29/24 12:42:
Patient is seen and evaluated personally. I agree with the note, documentation, physical examination and plan of care as discussed with nurse practitioner.
74-year-old gentleman with CKD, bladder cancer, hypertension, who presented with altered mental status and weakness along with hypotension. Patient is sitting with blank stare without following any instructions. Significant for not responding to
any auditory stimuli. Patient does have facial droop as well. Did not respond to me by shaking his shoulder. Patient's electrolytes are significantly deranged with severe hypokalemia acute renal failure. His exam does show somewhat left-sided
weakness. Potassium has been repleted with supplementation this morning. Agree not to give aggressive supplementation with his renal failure.
He is full code but appears to be severely sick. Consider moving to telemetry/IMU. He is hypotensive and may need pressure support if remains full code.
Family discussion for possible goal of care.
As far as his A-fib is concerned which is rate controlled. He is not a candidate for NOAC. He is at risk for stroke. Consult neurology to rule out any acute stroke. If there is no acute bleed or acute stroke noted, we can start heparin and
warfarin. Given his new acute renal failure, he is not a candidate for NOAC until a baseline creatinine is established.
Original Note:
Consultation
Consultation Request
Date/Time Consultation Requested: 09/29/2024 03:30
Date/Time Consultation Performed: 09/29/2024 11:30
Requesting Provider: ANGEL Vazquez
Performing Provider: ANGEL Cueto for Dr. Olguin
Reason for Consultation: New atrial fibrillation
Medical History
-
Chief Complaint: Weakness
History of Present Illness:
Fei Munson is a 74-year-old male with CKD 3a, prior bladder cancer (2019) hypertension, dyslipidemia, SRAVANTHI, and BPH who presented to the emergency department with a chief complaint of weakness. He had associated diarrhea and vomiting. He had poor
oral intake. His found his blood pressure to be low at home and he was referred to the emergency room. Labs were remarkable for potassium of 2.8, creatinine of 8.1 and a BUN of 145. He was evaluated by nephrology. His acute renal failure is
likely secondary to severe dehydration. He was found to be in new onset atrial fibrillation for which cardiology has been consulted.
Mr. Munson is currently on the telemetry unit. He is acutely ill with severe hypokalemia, acute renal failure, and has perhaps new left-sided weakness. Consider moving him to a higher level of care.
Past Medical History
Past Medical History: Cancer (Bladder [2019]), HTN, Hypercholesterolemia, NIDDM, Renal Failure (CKD3a) and Other (SRAVANTHI)
Past Surgical History: Urological
Social History
Tobacco: Former Smoker
Personal:
Living: With Family
Employment: Retired
Family History
Family History: Reviewed & Not Pertinent
Allergies / Home Medications
Allergy/AdvReac Type Severity Reaction Status Date / Time
No Known Allergies Allergy Verified 01/14/19 11:34
�Medication �Instructions �Recorded �Confirmed �Type
ascorbic acid (vitamin C) 500 mg 500 mg PO BID 09/28/24 09/28/24 History
tablet (Vitamin C)
aspirin 81 mg tablet,delayed 81 mg PO DAILY 09/28/24 09/28/24 History
release
ferrous sulfate 250 mg (50 mg 250 mg PO QPM 09/28/24 09/28/24 History
iron) tablet,extended release
flaxseed oil-omega 3,6,9-fatty 1 cap PO DAILY 09/28/24 09/28/24 History
acids 1,300 mg-670 mg-155 mg
capsule
glucosamine sulf dipot 1 cap PO DAILY 09/28/24 09/28/24 History
chlr,msm,chond 550 mg-C 30 mg-celeste
1 mg capsule (Glucosamine
Chondroitin)
losartan 100 mg tablet 100 mg PO DAILY 09/28/24 09/28/24 History
lovastatin 10 mg tablet 10 mg PO QPM 09/28/24 09/28/24 History
tamsulosin 0.4 mg capsule 0.4 mg PO QPM 09/28/24 09/28/24 History
therapeutic multivitamin 0.5 tab PO BID 09/28/24 09/28/24 History
Review of Systems
-
History Source: Patient
All other systems: Negative unless noted
Constitutional: Fatigue
EENT: No Symptoms
Respiratory: No Symptoms
Cardiac: No Symptoms
Abdomen/GI: Nausea, Vomiting and Diarrhea
: No Symptoms
Musculoskeletal: No Symptoms
Skin: No Symptoms
Neurological: Weakness
Endocrine: No Symptoms
Hematologic/Lymphatic: No Symptoms
Physical Exam
Vital Signs
Temp Pulse Resp BP Pulse Ox
97.8 F 74 15 88/50 97
09/29/24 11:48 09/29/24 11:48 09/29/24 11:48 09/29/24 11:48 09/29/24 11:48
Lab Results
09/29/24 09:31
Troponin I 0.020 ng/ml 09/29/24 02:51
Physical Exam
General: Comfortable
HEENT: Normocephalic and Anicteric
Respiratory: Clear and Non Labored Respirations
Cardiac: S1/S2
Breast: Deferred by me
GI: Soft, Normal Bowel Sounds and Tender
Rectal: Deferred by Provider
Genito-urinary: No Costovertebral Tender
Musculoskeletal: No Clubbing, No Cyanosis and No Edema
Skin: Warm and Dry
Hematologic/Lymphatic: No Lymphadenopathy
Psych: Calm
Impression / Plan
-
I/P: 74M with with CKD 3a, prior bladder cancer (2019) hypertension, dyslipidemia, SRAVANTHI, and BPH who presented to the emergency department with a chief complaint of weakness.
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
Paroxysmal atrial fibrillation, new
- No plan for rhythm control during this acute illness
- Oral Anticoagulation: Hold anticoagulation for now until he is evaluated by neurology
- [id number]: Score at least 3 (HTN, age 75 or more)
Left-sided weakness
- Chronicity unclear, consider neurology evaluation
JESSICA on CKD
- BUN 41 creatinine 1.63 in April
- Nephrology following
Diarrhea
- Enterocolitis on CT, per primary service
Hypokalemia, severe, threat to life, in the setting of GI loss
Hyponatremia, resolved
Abnormal EKG, likely in the setting of severe electrolyte derangement, denies chest pain
Prediabetes, last A1c 6%
Data Reviewed
-
EKG: Report Reviewed by me
Labs: Labs Reviewed by me
Old Records: Reviewed
[2024-09-29 12:03] LABS: Band Neutrophils 20 % (0-3)
[2024-09-29 12:04] LABS: Absolute Neutrophils -Man Diff 6.6 10^3/uL (1.4-6.5); Atypical Lymphocytes 3 %; Eosinophils 2 % (0-6); Lymphocytes 12 % (20-51); Metamyelocytes 6 % (-); Monocytes 12 % (2-9); Myelocytes 2 % (-); Platelets Checked Yes; Segmented Neutrophils 43 % (42-75)
[2024-09-29 12:05] LABS: Normal RBC Morphology Yes; Total Cells Counted 100
[2024-09-29] MEDS: NSS IV (13:22)
--- NOTE | 2024-09-29 13:37 | CON.NEURO ---
Consultation
Order
Date of Consultation: 09/29/24
Requesting Provider: Panda Miller MD
Reason for Consult: Altered mental status, question of metabolic encephalopathy versus seizure versus stroke
Neurology Consultation Note.
HPI: This is a 74-year-old man who presented to [facility] on 09/28/[facility]24 with encephalopathy and diarrhea. Mr.. Munson reports no complaints. He denies having headache, change in vision, strength or sensation.
According to EMR the patient was found by his confused in the past.
VS by EMS: 99/55, 75, 16, 99 on room air.
ER VS: 103/53-85/45, 70, afebrile
EKG:A-Fib, QTc Int : 467 ms
PDMP:none
Labs: Glucose�153, sodium�131, creatinine�8.1, potassium�2.8, UA�positive for leukocyte esterase, WBCs, Pl
CT head wo contrast�no acute abnormalities, mild atrophy.
PMH: A-Fib, bladder cancer, HTN, DLP, DM, CKD, anemia, nephrolithiasis, OA, BPH
PSH:TURBT, bilateral cataract surgery
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
FH: Colon cancer
All:NKDA
ROS: Constitutional: Negative. Negative for chills, fever and unexpected weight change.
HENT: Positive for chronic hearing impairment
Eyes: Negative. Negative for photophobia, pain and visual disturbance.
Respiratory: Negative for cough, choking and shortness of breath.
Cardiovascular: Negative for chest pain, palpitations and leg swelling.
Gastrointestinal: Negative for abdominal pain and vomiting.
Endocrine: Negative. Negative for cold intolerance.
Genitourinary: Negative for dysuria, flank pain and urgency.
Musculoskeletal: Negative for back pain, gait problem, neck pain and neck stiffness.
Skin: Negative for rash.
Allergic/Immunologic: Negative. Negative for immunocompromised state.
Neurological: Positive for encephalopathy
General: Well developed. In no acute distress.
Cardio: irregular rate and rhythm without murmur. Extremities are without cyanosis or edema.
Neuro:
Mental Status: Alert, oriented to name not to age, months. Was able to choose the right year from offered options. Impaired attention and increased processing time. Follows simple requests. Difficulties crossing midline. Nonfluent. No no
hemineglect
Cranial Nerves: Pupils are equally round, surgical. EOMs full. Visual ho full to confrontation. No ptosis. No nystagmus. Face symmetric. Impaired hearing AU. The palate elevated well. SCMs and traps 5/5. Tongue midline. No dysarthria.
Motor: Increased motor tone at the wrist. All limbs are antigravity symmetrically. No pronator drift
Reflexes: Limited exam due to increased motor tone
Sensory: Send vibration at the toes, ankles and preserved at the knees
Coordination: No dysmetria or tremor.
Gait: deferred
Assessment and Plan:
I. Parkinsonism. LBD?
II. PA-Fib
III. Encephalopathy (metabolic, infectious, vascular)
-Continue Telemetry monitoring
-Aspiration precautions
-Avoid cerebral hypoperfusion
-Please obtain brain MRI without lynsey
-Continue aspirin 81 mg once a day
-Will contact patient's spouse regarding patient's cognitive baseline
-PT.
-DVT prophylaxis.
I personally reviewed all radiology and labs along with past medical records pertinent to current medical problems. Total time spent in patient care is 60 minutes.
Thank you for allowing us to participate in the care of this patient. We will continue to follow. Please do not hesitate to contact us with any questions or concerns.
Subjective/Objective
Subjective Data
Date of Service: September 29, 2024
Objective Data
Vital Signs
Temp Pulse Resp BP Pulse Ox
36.6 C 74 15 88/50 97
09/29/24 11:48 09/29/24 11:48 09/29/24 11:48 09/29/24 11:48 09/29/24 11:48
Lab Results
09/29/24 09:31
APTT 30.4 Sec (23.4-35.0) 09/29/24 02:51
Sodium 135 mmol/L (135-145) 09/29/24 09:31
Potassium 2.7 mmol/L (3.5-5.1) L* 09/29/24 09:31
BUN 144 mg/dl (9-20) H* 09/29/24 09:31
Glucose 107 mg/dl (70-99) H 09/29/24 09:31
Calcium 7.4 mg/dl (8.4-10.2) L 09/29/24 09:31
Phosphorus 6.0 mg/dl (2.5-4.5) H 09/29/24 09:31
Patient Allergies
No Known Allergies Allergy (Verified 01/14/19 11:34)
Medications
-
Active Medications
Generic Name Dose Route Start Last Admin
Trade Name Freq PRN Reason Stop Dose Admin
Acetaminophen 650 mg 09/28/24 17:26
Acetaminophen 325 Mg Tablet PO 10/26/24 17:25
Q4HPRN PRN
mild pain/LOPEZ/temp> 100.4F
Ferrous Sulfate 325 mg 09/28/24 18:00 09/28/24 18:32
Ferrous Sulfate 325 Mg Tablet PO 10/26/24 17:59 Not Given
QPM [facility]
Heparin Sodium 5,000 units 09/28/24 20:00 09/29/24 09:05
Heparin 5,000 Units/Ml 1 Ml Vial SC 10/26/24 19:59 5,000 units
Q12 [facility] Administration
Piperacillin Sod/Tazobactam Sod 2.25 grams in 50 mls @ 100 mls/hr 09/28/24 20:00 09/29/24 11:45
Zosyn IV 50 mls
Q6H [facility] Administration
Potassium Chloride 40 meq/ 270 mls @ 67.5 mls/hr 09/29/24 11:51 09/29/24 13:02
Sodium Chloride IV 09/29/24 15:50 270 mls
NOW STA Administration
Norepinephrine Bitartrate 4 mg in 250 mls @ 0 mls/hr 09/29/24 13:00
Levophed IV
PER PROTOCOL [facility]
Protocol
Per Protocol
Sodium Bicarbonate 150 meq/ 1,150 mls @ 150 mls/hr 09/29/24 13:00
Dextrose IV
.Q7H40M [facility]
Midodrine 2.5 mg 09/29/24 13:00
Midodrine 2.5 Mg Tablet PO
TID@0800,1300,1800 [facility]
Multivitamins Therapeutic 0.5 tablet 09/28/24 20:00 09/29/24 09:07
Multivitamin Tablet PO 10/26/24 19:59 0.5 tablet
BID [facility] Administration
Sodium Chloride 0 flush 09/28/24 16:00
Sodium Chloride 0.9% (Flush) Syringe IV 10/26/24 15:59
PER PROTOCOL [facility]
Trimethobenzamide HCl 200 mg 09/28/24 17:26
Trimethobenzamide 200 Mg/2 Ml Vial IM 10/26/24 17:25
Q6HPRN PRN
Nausea vomiting
Home Medications
�Medication �Instructions �Recorded
ascorbic acid (vitamin C) 500 mg 500 mg PO BID 09/28/24
tablet (Vitamin C)
aspirin 81 mg tablet,delayed 81 mg PO DAILY 09/28/24
release
ferrous sulfate 250 mg (50 mg 250 mg PO QPM 09/28/24
iron) tablet,extended release
flaxseed oil-omega 3,6,9-fatty 1 cap PO DAILY 09/28/24
acids 1,300 mg-670 mg-155 mg
capsule
glucosamine sulf dipot 1 cap PO DAILY 09/28/24
chlr,msm,chond 550 mg-C 30 mg-celeste
1 mg capsule (Glucosamine
Chondroitin)
losartan 100 mg tablet 100 mg PO DAILY 09/28/24
lovastatin 10 mg tablet 10 mg PO QPM 09/28/24
tamsulosin 0.4 mg capsule 0.4 mg PO QPM 09/28/24
therapeutic multivitamin 0.5 tab PO BID 09/28/24
Vital Signs and Labs
-
Vital Signs and Labs:
Vital Signs
Temp Pulse Resp BP Pulse Ox
36.6 C 74 15 88/50 97
09/29/24 11:48 09/29/24 11:48 09/29/24 11:48 09/29/24 11:48 09/29/24 11:48
Lab Results
09/29/24 09:31
APTT 30.4 Sec (23.4-35.0) 09/29/24 02:51
Sodium 135 mmol/L (135-145) 09/29/24 09:31
Potassium 2.7 mmol/L (3.5-5.1) L* 09/29/24 09:31
BUN 144 mg/dl (9-20) H* 09/29/24 09:31
Glucose 107 mg/dl (70-99) H 09/29/24 09:31
Calcium 7.4 mg/dl (8.4-10.2) L 09/29/24 09:31
Phosphorus 6.0 mg/dl (2.5-4.5) H 09/29/24 09:31
Medications
-
Medications:
Generic Name Dose Route Start Last Admin
Trade Name Freq PRN Reason Stop Dose Admin
Acetaminophen 650 mg 09/28/24 17:26
Acetaminophen 325 Mg Tablet PO 10/26/24 17:25
Q4HPRN PRN
mild pain/LOPEZ/temp> 100.4F
Ferrous Sulfate 325 mg 09/28/24 18:00 09/28/24 18:32
Ferrous Sulfate 325 Mg Tablet PO 10/26/24 17:59 Not Given
QPM [facility]
Heparin Sodium 5,000 units 09/28/24 20:00 09/29/24 09:05
Heparin 5,000 Units/Ml 1 Ml Vial SC 10/26/24 19:59 5,000 units
Q12 [facility] Administration
Piperacillin Sod/Tazobactam Sod 2.25 grams in 50 mls @ 100 mls/hr 09/28/24 20:00 09/29/24 11:45
Zosyn IV 50 mls
Q6H [facility] Administration
Potassium Chloride 40 meq/ 270 mls @ 67.5 mls/hr 09/29/24 11:51 09/29/24 13:02
Sodium Chloride IV 09/29/24 15:50 270 mls
NOW STA Administration
Norepinephrine Bitartrate 4 mg in 250 mls @ 0 mls/hr 09/29/24 13:00
Levophed IV
PER PROTOCOL [facility]
Protocol
Per Protocol
Sodium Bicarbonate 150 meq/ 1,150 mls @ 150 mls/hr 09/29/24 13:00
Dextrose IV
.Q7H40M [facility]
Midodrine 2.5 mg 09/29/24 13:00
Midodrine 2.5 Mg Tablet PO
TID@0800,1300,1800 [facility]
Multivitamins Therapeutic 0.5 tablet 09/28/24 20:00 09/29/24 09:07
Multivitamin Tablet PO 10/26/24 19:59 0.5 tablet
BID [facility] Administration
Sodium Chloride 0 flush 09/28/24 16:00
Sodium Chloride 0.9% (Flush) Syringe IV 10/26/24 15:59
PER PROTOCOL [facility]
Trimethobenzamide HCl 200 mg 09/28/24 17:26
Trimethobenzamide 200 Mg/2 Ml Vial IM 10/26/24 17:25
Q6HPRN PRN
Nausea vomiting
Home Medications
-
Home Medications
ascorbic acid (vitamin C) 500 mg tablet (Vitamin C) 500 mg PO BID 09/28/24
aspirin 81 mg tablet,delayed release 81 mg PO DAILY 09/28/24
ferrous sulfate 250 mg (50 mg iron) tablet,extended release 250 mg PO QPM 09/28/24
flaxseed oil-omega 3,6,9-fatty acids 1,300 mg-670 mg-155 mg capsule 1 cap PO DAILY 09/28/24
glucosamine sulf dipot chlr,msm,chond 550 mg-C 30 mg-celeste 1 mg capsule (Glucosamine Chondroitin) 1 cap PO DAILY 09/28/24
losartan 100 mg tablet 100 mg PO DAILY 09/28/24
lovastatin 10 mg tablet 10 mg PO QPM 09/28/24
tamsulosin 0.4 mg capsule 0.4 mg PO QPM 09/28/24
therapeutic multivitamin 0.5 tab PO BID 09/28/24
--- NOTE | 2024-09-29 13:53 | W.PN.NEPH.PH ---
Today's Communication / Plan
-
Bicarbonate drip
Possible dialysis in the next 24 hours
Assessment/Plan
-
74-year-old male with history hypertension, diabetes presenting to the emergency department via EMS for evaluation of 5 days of diarrhea and generalized weakness. Patient's states he has had multiple episodes of nonbloody diarrhea since
Tuesday. He has had 1 episode of vomiting.
BUN 145 creatinine 8
Impression.
Acute kidney injury likely secondary to diarrhea and prerenal.
Diarrhea enterocolitis on CAT scan.
Diabetes.
Hypertension.
Plan
Status post 2 L of normal saline.
Urine sodium less than 8, protein creatinine ratio 0.3 white blood cells 21-25 with leuk esterases
Maintain Ny catheter.
Antibiotics
Minimal improvement in the renal function
Will start a bicarbonate drip replete potassium aggressively while on bicarbonate
Urinalysis white blood cells and red blood cells= cultures pending
The patient is seen earlier discussed dialysis he was able to understand what I was saying.
Recheck labs this afternoon will make a decision on dialysis in the next 24 hours
Plan discussed with hospitalist
-
-
Date of Service: September 29, 2024
CC / HPI / ROS
-
Chief Complaint:
Diarrhea
History of Present Illness:
Presents with diarrhea nausea vomiting significant azotemia.
Review of Systems:
Lethargic no chest pain or shortness of breath nonoliguric
Labs
-
Labs:
WBC 10.5 10^3/uL (4.8-10.8) 09/29/24 09:31
RBC 4.11 10^6/uL (4.70-6.10) L 09/29/24 09:31
Hgb 12.5 g/dL (13.0-18.0) L 09/29/24 09:
Hct 35.3 % (39.0-52.0) L 09/29/24 09:31
Plt Count 201 10^3/uL (130-400) 09/29/24 09:31
eGFR 6.07 09/29/24 09:31
Phosphorus 6.0 mg/dl (2.5-4.5) H 09/29/24 09:31
Albumin 2.9 g/dl (3.5-5.0) L 09/29/24 09:31
Physical Exam
-
Vital Signs:
Vital Signs
Temp Pulse Resp BP Pulse Ox
97.8 F 74 15 88/50 97
09/29/24 11:48 09/29/24 11:48 09/29/24 11:48 09/29/24 11:48 09/29/24 11:48
Respiratory:: Bilateral: CTA
Lung Excursion:: Normal
Abdomen:: Soft
Bowel Sounds:: Normal
Extremity Edema:: None: Bilateral:
Ny Catheter: Yes
[2024-09-29 14:28] LABS: Glycohemoglobin (HgbA1c) 6.1 % (4.0-5.6)
[2024-09-29] MEDS: ProAmatine 2.5 MG PO ×2 (14:29→17:41)
[2024-09-29 14:37] LABS: Calcium 7.5 mg/dl (8.4-10.2); Carbon Dioxide 10 mmol/L (22-30); Chloride 105 mmol/L (98-107); Estimated Creatinine Clearance 8 ml/min; Glucose 136 mg/dl (70-99); Potassium 2.8 mmol/L (3.5-5.1); Sodium 136 mmol/L (135-145); eGFR 6.15
[2024-09-29 14:54] LABS: Blood Urea Nitrogen 146 mg/dl (9-20)
--- NOTE | 2024-09-29 14:58 | TRANSFER ---
MD ordered to transfer pt to higher level of care. BPs low and Levo drip, bicarb drip ordered. Orders received, report called to Shira in ICU. Pt slid over from bed to stretcher x 3 from staff. Pt transferred to ICU accompanied by RN, PCT and .
St stable upon arrival and successfully transferred into the care of the ICU staff.
[2024-09-29] MEDS: SODIUM BICARBONATE 1150 MEQ IV ×2 (15:41→23:31)
--- NOTE | 2024-09-29 15:57 | PTCARENOTE ---
Pt rec'd inti ICU 3363 as IMU overflow. CHG performed, skin assessed, oriented to room and plan of care. Luna and daughter arrived in room. Pt ordered and given zosyn and bicarb gtt, additional IV access placed. See worklist. Vitals stable,
not requiring levophed, see trends. Pt aox2, forgetful, soft spoken. Bed alarm in place and armed. call lindsey in reach, education provided to pt and family, questions answered, plan of care reviewed.
[2024-09-29] MEDS: FEOSOL 325 MG PO (16:27)
[2024-09-29 18:12] LABS: Calcium 7.7 mg/dl (8.4-10.2); Carbon Dioxide 14 mmol/L (22-30); Chloride 105 mmol/L (98-107); Estimated Creatinine Clearance 9 ml/min; Glucose 158 mg/dl (70-99); Potassium 3.3 mmol/L (3.5-5.1); Sodium 137 mmol/L (135-145); eGFR 6.43
[2024-09-29 18:21] LABS: Blood Urea Nitrogen 145 mg/dl (9-20)
[2024-09-29 18:38] LABS: TSH Reflex To Free T4 1.89 uIU/ml (0.47-4.68)
[2024-09-29 18:58] LABS: Vitamin B12 > 1000 pg/ml (239-931)
--- NOTE | 2024-09-29 21:44 | PTCARENOTE ---
Received patient AAOx3, occasionally forgetful. Afib 70s-80s, BP stable, normothermic. Weak pedal pulses b/l, trace b/l LE edema. 98% on room air, lung sounds diminished throughout. Hyperactive bowel sounds, abdomen soft, round, nontender. Ny in
place draining clear yellow urine for JESSICA. Blanchable red/MASD on buttocks. PIVs patent, WNL. IVF ongoing. Call lindsey within reach.
[2024-09-30] VITALS (19 sets, daily range): BP systolic 124–162; BP diastolic 80–109; BMI 23.3
[2024-09-30] MEDS: ZOSYN 50 IV ×2 (02:24→08:12)
[2024-09-30 04:42] LABS: Hematocrit 31.5 % (39.0-52.0); Hemoglobin 11.3 g/dL (13.0-18.0); Mean Corp Hgb Conc. 35.9 g/dL (33.0-37.0); Mean Corpuscular Volume 83.6 fL (80.0-94.0); Platelet Count 186 10^3/uL (130-400); Red Blood Cell Count 3.77 10^6/uL (4.70-6.10); Red Cell Dist. Width 12.9 % (11.5-14.5); White Blood Cell Count 10.8 10^3/uL (4.8-10.8)
[2024-09-30 06:14] LABS: ALT (SGPT) 14 U/L (0-50); AST (SGOT) 14 U/L (17-59); Albumin 2.5 g/dl (3.5-5.0); Alkaline Phosphatase 48 U/L (38-126); Blood Urea Nitrogen 127 mg/dl (9-20); Calcium 7.3 mg/dl (8.4-10.2); Carbon Dioxide 17 mmol/L (22-30); Chloride 112 mmol/L (98-107); Estimated Creatinine Clearance 12 ml/min; Glucose 181 mg/dl (70-99); Magnesium 1.9 mg/dl (1.6-2.3); Phosphorus 2.3 mg/dl (2.5-4.5); Potassium 3.3 mmol/L (3.5-5.1); Sodium 140 mmol/L (135-145); Total Bilirubin 0.5 mg/dl (0.2-1.3); Total Protein 4.6 g/dl (6.3-8.2); eGFR 9.46
--- NOTE | 2024-09-30 06:49 | W.PN.HOSP.TC ---
Today's Communication/Plan
-
see s/p
Assessment / Plan
Assessment / Plan
Physical Exam
General: no acute distress resting comfortably in bed
HEENT: NormoCephalic, Anicteric, PERRLA, [place] Conjunctivae, Symmetric face, no facial droop
Respiratory: Clear; No Wheezes, Rales or Rhonchi
Cardiac: S1/S2 Irregularly Irregular rhythm
GI: Soft, Non Distended, Normal Bowel Sounds, nontender
Musculoskeletal: No Clubbing, No Cyanosis and No Edema
Skin: Warm and Dry; No Rash
Neuro: AO x 2 disoriented to time, speaks minimally but fluent coherent, flat affect, symmetric strength upper and lower ext's, Left handed per patient
Psych: Calm
74M hx HTN DM BPH ex-smoker bladder sx for precancerous lesions here with diarrhea and acute renal failure. Developed new onset afib overnight though rate controlled. Severe electrolyte abn's hypokalemia and metabolic acidosis. AMS concerning for
metabolic encephalopathy (most likely) vs absence sz d/o vs stroke. Hypotensive/soft pressures, patient admitted to Tele was transferred to IMU for closer monitoring.
#Acute renal failure 2/2 diarrheal losses/dehydration
# hx BPH
#Metabolic Acidosis
#Severe Hypokalemia
-monitor and replete K as necessary
- Consult nephrology appreciated patient improving, HD not indicated at this time, IVF NS switched to Bicarb gtt later switched to LR following improvement bicarb
- Continue Ny catheter to monitor intake output
-Flomax held due to hypotension since resumed with improvement in pressures
-PT/OT appreciated SNF rehab, shuffling gait noted
CT abdomen pelvis without IV contrast:
1. Dilated air and fluid-filled loops of small bowel, mainly involving the mid to distal small bowel. Fluid and air present within the colon
without collapse, although without significant distention. Suggestion of mild wall thickening of colonic and small bowel loops.
Findings would be suggestive of enterocolitis. Differential consideration of adynamic ileus.
No convincing evidence for bowel obstruction or free intraperitoneal air.
2. Small hyperdense cysts present within each kidney. Small left-sided nephroliths.
3. Ny catheter within the bladder. Calcification within the left side of the bladder compatible with bladder calculus.
4. Small pericardial effusion, mainly anteriorly, measuring up to 1.5 cm in thickness.
#Hypotension secondary to dehydration/diarrheal losses
#Hx HTN
briefly on low dose midodrine with holding parameters since discontinued w/ improvement in pressures
home Losartan resumed with holding parameters
Diarrhea resolved at this time.
#Diarrhea likely secondary to Acute colitis viral versus bacterial
-follow stool studies
-Norovirus and Cdiff neg
- IV Zosyn 2.25 g Q6 renal dose switched to Augmentin renal dose, probiotic added/continue
-IM Tigan prn nausea vomiting
-Low Residue Diet
#AMS
#Likely Toxic Metabolic Encephalopathy vs absence sz vs stroke
#Suspected Parkinson
09/29 Examined multiple times throughout the day d/t prior assessments/reports of left sided weakness, facial droop, unresponsiveness, sitting in chair with blank stare after participating with PT/OT. Consistently alert conversant (though paucity
of speech) with symmetric face and strength noted throughout remainder of day
CT head appreciated no acute abn's
Neuro consult appreciated Parkinsonism, cont home ASA 81 mg daily, Brain MRI noted no acute abn's
#New Onset Afib rate controlled
Cardio eval appreciated no plan for rhythm control at this time during acute illness, eventual oral anticoagulation to be started
# Prolonged QTc-QTc 494 MS
-minimize/avoid us of QT prolonging agents as possible
#reported hx DM2
-A1c 6.1 prediabetic
- no need for routine FS or sliding scale at this time.
#Hx iron deficiency
-Continue iron supplement
#Bladder surgery with precancerous lesions removed
VTE prophylaxis Subcu heparin
Full code
Discussed with patient and patient's Luna
I spent a total of 50 minutes with the patient or on the floor. More than 50% of this time involved counseling and coordination of care.
Anticipated Discharge: 24 - 48 hours
Subjective/Interval History
-
Date of Service: September 30, 2024
significantly improved. More conversant cheerful. Tolerating diet.
Objective Data
-
Labs:
Laboratory Results
09/30/24 09/30/24
04:17 05:24
WBC 10.8
Hgb 11.3 L
Hct 31.5 L
Plt Count 186
Sodium Cancelled 140
Potassium Cancelled 3.3 L
Chloride Cancelled 112 H
Carbon Dioxide Cancelled 17 L
BUN Cancelled 127 H*
Creatinine Cancelled 5.8 H*
Glucose Cancelled 181 H
Calcium Cancelled 7.3 L
Total Bilirubin Cancelled 0.5
AST Cancelled 14 L
ALT Cancelled 14
Alkaline Phosphatase Cancelled 48
Vital Signs:
Vital Signs
Temp Pulse Resp BP Pulse Ox
97.9 F 70 14 154/84 96
09/30/24 03:15 09/30/24 06:00 09/30/24 06:00 09/30/24 06:00 09/30/24 06:00
I&O
09/28/24 09/29/24 09/30/24
06:59 06:59 06:59
Intake Total 1950 / 1950 3190 / 3190
Output Total 300 / 300 1175 / 1175
Balance 1650 / 1650 2014
--- NOTE | 2024-09-30 07:46 | PTCARENOTE ---
Pt rec'd from night RN, no longer in afib on tele, HR 55 -70s in sinus arrythmia, strip posted. Labs improving -see chart.
[2024-09-30] MEDS: SODIUM BICARBONATE 1150 MEQ IV (08:05)
[2024-09-30] MEDS: THERAGRAN 0.5 TABLET PO ×2 (08:07→20:13)
[2024-09-30] MEDS: HEPARIN 5000 UNITS SC ×2 (08:07→20:14)
[2024-09-30] MEDS: ProAmatine PO ×3 (08:07→18:04)
[2024-09-30] MEDS: KCL 270 MEQ IV (08:09)
--- NOTE | 2024-09-30 08:21 | PTCARENOTE ---
Pt assessed. AOx2, forgetful to time and which hospital. Pleasant and appropriate, soft spoken. SR in 80s on tele, bp WNL. Does not meet parameters for Midodrine, see worklist. K rider ordered and hung, other meds as documented. Ny care provided,
pt turned and repositioned. Breakfast ordered. Plan discussed with ict security specialist at bedside, will hold off on HD at this time. Pt updated and verbalized agreement. Call lindsey in hand. Bed alarmed.
--- NOTE | 2024-09-30 08:47 | W.PN.NEURO.1 ---
Today's Communication / Plan
-
.
Subjective/Objective
Subjective Data
Date of Service: September 30, 2024
Neurology follow-up note
HPI: Mr. Munson reports no complaints.
Mildly hypertensive in the morning, afebrile.
PMH: A-Fib, bladder cancer, HTN, DLP, DM, CKD, anemia, nephrolithiasis, OA, BPH
PSH:TURBT, bilateral cataract surgery
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
FH: colon cancer
All:NKDA
ROS: Constitutional: Negative. Negative for chills, fever and unexpected weight change.
HENT: Positive for chronic hearing impairment
Eyes: Negative. Negative for photophobia, pain and visual disturbance.
Respiratory: Negative for cough, choking and shortness of breath.
Cardiovascular: Negative for chest pain, palpitations and leg swelling.
Gastrointestinal: Negative for abdominal pain and vomiting.
Endocrine: Negative. Negative for cold intolerance.
Genitourinary: Negative for dysuria, flank pain and urgency.
Musculoskeletal: Negative for back pain, gait problem, neck pain and neck stiffness.
Skin: Negative for rash.
Allergic/Immunologic: Negative. Negative for immunocompromised state.
Neurological: Positive for encephalopathy
General: Well developed. In no acute distress.
Cardio: irregular rate and rhythm without murmur. Extremities are without cyanosis or edema.
Neuro:
Mental Status: Alert, oriented to name not to age, months. Was able to choose the right year from offered options. Impaired attention and increased processing time. Follows simple requests. Difficulties crossing midline. Nonfluent. No no
hemineglect
Cranial Nerves: Pupils are equally round, surgical. EOMs full. Visual ho full to confrontation. No ptosis. No nystagmus. Face symmetric. Impaired hearing AU. The palate elevated well. SCMs and traps 5/5. Tongue midline. No dysarthria.
Motor: Increased motor tone at the wrist. All limbs are antigravity symmetrically. No pronator drift
Reflexes: Limited exam due to increased motor tone
Sensory: Send vibration at the toes, ankles and preserved at the knees
Coordination: No dysmetria or tremor.
Gait: deferred
Assessment and Plan:
I. Parkinsonism.
II. PA-Fib
III. Encephalopathy (metabolic, infectious, vascular)
-Continue Telemetry monitoring
-Brain MRI without lynsey
-Continue aspirin 81 mg once a day
-PT.
-DVT prophylaxis.
I personally reviewed all radiology and labs along with past medical records pertinent to current medical problems. Total time spent in patient care is 60 minutes.
Thank you for allowing us to participate in the care of this patient. We will continue to follow. Please do not hesitate to contact us with any questions or concerns.
Objective Data
Vital Signs
Temp Pulse Resp BP Pulse Ox
36.8 C 71 12 143/85 98
09/30/24 07:39 09/30/24 08:07 09/30/24 07:00 09/30/24 08:07 09/30/24 07:00
Lab Results
09/30/24 04:17
APTT 30.4 Sec (23.4-35.0) 09/29/24 02:51
Sodium 140 mmol/L (135-145) 09/30/24 05:24
Potassium 3.3 mmol/L (3.5-5.1) L 09/30/24 05:24
BUN 127 mg/dl (9-20) H* 09/30/24 05:24
Glucose 181 mg/dl (70-99) H 09/30/24 05:24
Calcium 7.3 mg/dl (8.4-10.2) L 09/30/24 05:24
Phosphorus 2.3 mg/dl (2.5-4.5) L 09/30/24 05:24
Vitamin B12 > 1000 pg/ml (221-036) H 09/29/24 17:48
Patient Allergies
No Known Allergies Allergy (Verified 01/14/19 11:34)
Vital Signs and Labs
-
Vital Signs and Labs:
Vital Signs
Temp Pulse Resp BP Pulse Ox
36.8 C 71 12 143/85 98
09/30/24 07:39 09/30/24 08:07 09/30/24 07:00 09/30/24 08:07 09/30/24 07:00
Lab Results
09/30/24 04:17
APTT 30.4 Sec (23.4-35.0) 09/29/24 02:51
Sodium 140 mmol/L (135-145) 09/30/24 05:24
Potassium 3.3 mmol/L (3.5-5.1) L 09/30/24 05:24
BUN 127 mg/dl (9-20) H* 09/30/24 05:24
Glucose 181 mg/dl (70-99) H 09/30/24 05:24
Calcium 7.3 mg/dl (8.4-10.2) L 09/30/24 05:24
Phosphorus 2.3 mg/dl (2.5-4.5) L 09/30/24 05:24
Vitamin B12 > 1000 pg/ml (368-913) H 09/29/24 17:48
Medications
-
Medications:
Generic Name Dose Route Start Last Admin
Trade Name Freq PRN Reason Stop Dose Admin
Acetaminophen 650 mg 09/28/24 17:26
Acetaminophen 325 Mg Tablet PO 10/26/24 17:25
Q4HPRN PRN
mild pain/LOPEZ/temp> 100.4F
Ferrous Sulfate 325 mg 09/28/24 18:00 09/29/24 16:27
Ferrous Sulfate 325 Mg Tablet PO 10/26/24 17:59 325 mg
QPM [facility] Administration
Heparin Sodium 5,000 units 09/28/24 20:00 09/30/24 08:07
Heparin 5,000 Units/Ml 1 Ml Vial SC 10/26/24 19:59 5,000 units
Q12 [facility] Administration
Piperacillin Sod/Tazobactam Sod 2.25 grams in 50 mls @ 100 mls/hr 09/28/24 20:00 09/30/24 08:12
Zosyn IV 50 mls
Q6H [facility] Administration
Norepinephrine Bitartrate 4 mg in 250 mls @ 0 mls/hr 09/29/24 13:00
Levophed IV
PER PROTOCOL [facility]
Protocol
Per Protocol
Sodium Bicarbonate 150 meq/ 1,150 mls @ 150 mls/hr 09/29/24 15:30 09/30/24 08:05
Dextrose IV 1,150 mls
.Q7H40M [facility] Administration
Potassium Chloride 40 meq/ 270 mls @ 67.5 mls/hr 09/30/24 06:53 09/30/24 08:09
Sodium Chloride IV 09/30/24 10:52 270 mls
NOW STA Administration
Midodrine 2.5 mg 09/29/24 13:00 09/30/24 08:07
Midodrine 2.5 Mg Tablet PO Not Given
TID@0800,1300,1800 [facility]
Multivitamins Therapeutic 0.5 tablet 09/28/24 20:00 09/30/24 08:07
Multivitamin Tablet PO 10/26/24 19:59 0.5 tablet
BID [facility] Administration
Potassium Phosphate 250 mg 09/30/24 09:00
Neutra-Phos Powder Concentrate (250 Mg) Packet PO 10/28/24 08:59
PCHS [facility]
Sodium Chloride 0 flush 09/28/24 16:00
Sodium Chloride 0.9% (Flush) Syringe IV 10/26/24 15:59
PER PROTOCOL [facility]
Trimethobenzamide HCl 200 mg 09/28/24 17:26
Trimethobenzamide 200 Mg/2 Ml Vial IM 10/26/24 17:25
Q6HPRN PRN
Nausea vomiting
Home Medications
-
Home Medications
ascorbic acid (vitamin C) 500 mg tablet (Vitamin C) 500 mg PO BID 09/28/24
aspirin 81 mg tablet,delayed release 81 mg PO DAILY 09/28/24
ferrous sulfate 250 mg (50 mg iron) tablet,extended release 250 mg PO QPM 09/28/24
flaxseed oil-omega 3,6,9-fatty acids 1,300 mg-670 mg-155 mg capsule 1 cap PO DAILY 09/28/24
glucosamine sulf dipot chlr,msm,chond 550 mg-C 30 mg-celeste 1 mg capsule (Glucosamine Chondroitin) 1 cap PO DAILY 09/28/24
losartan 100 mg tablet 100 mg PO DAILY 09/28/24
lovastatin 10 mg tablet 10 mg PO QPM 09/28/24
tamsulosin 0.4 mg capsule 0.4 mg PO QPM 09/28/24
therapeutic multivitamin 0.5 tab PO BID 09/28/24
[2024-09-30 08:59] LABS: Absolute Neutrophils -Man Diff 7.8 10^3/uL (1.4-6.5); Band Neutrophils 3 % (0-3); Lymphocytes 15 % (20-51); Monocytes 7 % (2-9); Segmented Neutrophils 70 % (42-75)
[2024-09-30 09:00] LABS: Atypical Lymphocytes 1 %; Metamyelocytes 2 % (-); Myelocytes 2 % (-)
[2024-09-30 09:01] LABS: Normal RBC Morphology Yes; Platelets Checked Yes; Total Cells Counted 100
[2024-09-30] MEDS: NEUTRA-PHOS POWDER PACKET 250 MG PO ×4 (09:01→21:34)
--- NOTE | 2024-09-30 11:17 | W.PN.NEPH.PH ---
Today's Communication / Plan
-
Changed to lactated Ringer's
No dialysis indicated at this time
Assessment/Plan
-
74-year-old male with history hypertension, diabetes presenting to the emergency department via EMS for evaluation of 5 days of diarrhea and generalized weakness. Patient's states he has had multiple episodes of nonbloody diarrhea since
Tuesday. He has had 1 episode of vomiting.
BUN 145 creatinine 8
Impression.
Acute kidney injury likely secondary to diarrhea and prerenal.
Diarrhea enterocolitis on CAT scan.
Diabetes.
Hypertension.
Plan
Status post 2 L of normal saline.
Urine sodium less than 8, protein creatinine ratio 0.3 white blood cells 21-25 with leuk esterases
Maintain Ny catheter.
Antibiotics
Minimal improvement in the renal function
Will start a bicarbonate drip replete potassium aggressively while on bicarbonate
Urinalysis white blood cells and red blood cells= cultures pending
Patient seems to be opening up is a nonoliguric creatinine down.
No need for dialysis at this time from a volume, electrolyte or uremic standpoint.
Discussed with hospital medicine and nursing staff
Will finish out bicarbonate drip and then can change to lactated Ringer's
Total Time Spent with Patient (in minutes): 35
-
-
Date of Service: September 30, 2024
CC / HPI / ROS
-
Chief Complaint:
Diarrhea
History of Present Illness:
Presents with diarrhea nausea vomiting significant azotemia.
Review of Systems:
Diarrhea resolved
nonoliguric
Labs
-
Labs:
WBC 10.8 10^3/uL (4.8-10.8) 09/30/24 04:17
RBC 3.77 10^6/uL (4.70-6.10) L 09/30/24 04:17
Hgb 11.3 g/dL (13.0-18.0) L 09/30/24 04:17
Hct 31.5 % (39.0-52.0) L 09/30/24 04:17
Plt Count 186 10^3/uL (130-400) 09/30/24 04:17
eGFR 9.46 09/30/24 05:24
Phosphorus 2.3 mg/dl (2.5-4.5) L 09/30/24 05:24
Albumin 2.5 g/dl (3.5-5.0) L 09/30/24 05:24
Physical Exam
-
Vital Signs:
Vital Signs
Temp Pulse Resp BP Pulse Ox
97.9 F 77 14 146/88 98
09/30/24 11:05 09/30/24 10:00 09/30/24 10:00 09/30/24 10:00 09/30/24 10:00
Respiratory:: Bilateral: CTA
Lung Excursion:: Normal
Abdomen:: Soft
Bowel Sounds:: Normal
Extremity Edema:: None: Bilateral:
Ny Catheter: Yes
[2024-09-30 12:52] LABS: Calcium 8.3 mg/dl (8.4-10.2); Carbon Dioxide 21 mmol/L (22-30); Chloride 108 mmol/L (98-107); Estimated Creatinine Clearance 12 ml/min; Glucose 232 mg/dl (70-99); Potassium 3.9 mmol/L (3.5-5.1); Sodium 140 mmol/L (135-145); eGFR 9.87
[2024-09-30 13:02] LABS: Blood Urea Nitrogen 127 mg/dl (9-20)
--- NOTE | 2024-09-30 13:04 | W.PN.CD ---
Today's Communication / Plan
-
- Holding anticoagulation today
- If creatinine continues to improve likely will start chronic anticoagulation therapy tomorrow.
Impression / Plan
-
I/P: 74M with with CKD 3a, prior bladder cancer (2019) hypertension, dyslipidemia, SRAVANTHI, and BPH who presented to the emergency department with a chief complaint of weakness.
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
Paroxysmal atrial fibrillation, new
- Now back in sinus rhythm.
- Patient is going in and out of A-fib to sinus now with rehydration.
- Oral Anticoagulation: Hold anticoagulation for now with significant renal failure.
- [id number]: Score at least 3 (HTN, age 75 or more)
Left-sided weakness
- Chronicity unclear, consider neurology evaluation
- Mental status is much improved this morning.
- S/p IV fluids. Blood pressure has improved.
- Patient is alert and awake and is able to communicate appropriately without any difficulty. Patient's is at bedside as well.
JESSICA on CKD
- Creatinine was 8.5. With IV fluids and bicarb, creatinine has started to come down and is 5.6 now.
- BUN 41 creatinine 1.63 in April
- Nephrology following
Diarrhea
- Enterocolitis on CT, per primary service
- Significant fluid depletion. Status post IV fluids. Patient is improved significantly.
Hypokalemia, severe, threat to life, in the setting of GI loss
Hyponatremia, resolved-likely due to hypovolemia
Abnormal EKG, likely in the setting of severe electrolyte derangement, denies chest pain
Prediabetes, last A1c 6%
Physical Exam
Vital Signs/Labs
Vital Signs
Temp Pulse Resp BP Pulse Ox
97.9 F 72 14 154/87 98
09/30/24 11:05 09/30/24 12:02 09/30/24 10:00 09/30/24 12:02 09/30/24 10:00
09/29/24 09/30/24 10/01/24
06:59 06:59 06:59
Actual Weight 78.4 kg 77.8 kg
09/30/24 04:17
09/30/24 12:17
APTT 30.4 Sec (23.4-35.0) 09/29/24 02:51
Magnesium 1.9 mg/dl (1.6-2.3) 09/30/24 05:24
LAB Results
09/29/24
02:51
Troponin I 0.020
Physical Exam
Constitutional: No acute distress and Comfortable
EENT: Anicteric and Moist mucous membranes
Cardiovascular: Rhythm & rate is regular and Systolic murmur present
Respiratory: Respiratory effort normal and Lungs clear to auscul.
GI: Soft, Non tender and Normal bowel sounds
Neuro/Psych: Alert and Oriented
Other: Skin
Data Reviewed
-
Date of Service: September 30, 2024
Medical Decision Making: Reviewed Test Results, Test Interpretation and Review of Case with other Provider
EKG: Tracing Personally Visualized and interpreted
Labs: Labs Reviewed by me
Old Records: Reviewed
Critical Care Time (in minutes): 35
--- NOTE | 2024-09-30 13:57 | PTCARENOTE ---
Pt transported in bed to MRI, test completed, returned to room with out incident.
[2024-09-30] MEDS: LR 1000 IV ×2 (16:40→23:30)
[2024-09-30] MEDS: FEOSOL 325 MG PO (18:03)
--- NOTE | 2024-09-30 20:00 | PTCARENOTE ---
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
bases, sat 97, hyper bowel sounds,no bm, abd round, no n/v, jg fluids, dyson draining clear yellow urine
[2024-09-30] MEDS: AUGMENTIN 500 MG/125 MG 1 TABLET PO (20:13)
[2024-09-30] MEDS: FLORASTOR 250 MG PO (20:13)
--- NOTE | 2024-09-30 23:00 | PTCARENOTE ---
Chetan Gaines NP aware of bp- to cont to montior
--- NOTE | 2024-09-30 23:15 | PTCARENOTE ---
apresoline 5mg po given as ordered
[2024-09-30] MEDS: APRESOLINE 5 MG PO (23:17)
[2024-10-01] VITALS (20 sets, daily range): BP systolic 143–168; BP diastolic 66–104; BMI 24.1
--- NOTE | 2024-10-01 | PTCARENOTE ---
sys reviewed, changes noted, CHG bath done, linens changed
[2024-10-01 03:53] LABS: Hematocrit 30.9 % (39.0-52.0); Mean Corp Hgb Conc. 35.6 g/dL (33.0-37.0); Mean Corpuscular Hgb 30.3 pg (27.0-31.0); Mean Corpuscular Volume 85.1 fL (80.0-94.0); Mean Platelet Volume 11.4 fL (7.4-10.4); Platelet Count 182 10^3/uL (130-400); Red Blood Cell Count 3.63 10^6/uL (4.70-6.10); Red Cell Dist. Width 13.1 % (11.5-14.5); White Blood Cell Count 13.6 10^3/uL (4.8-10.8)
--- NOTE | 2024-10-01 04:00 | PTCARENOTE ---
sys reviewed, changes noted
[2024-10-01 04:02] LABS: Blood Urea Nitrogen 104 mg/dl (9-20); Calcium 8.2 mg/dl (8.4-10.2); Carbon Dioxide 23 mmol/L (22-30); Chloride 110 mmol/L (98-107); Estimated Creatinine Clearance 18 ml/min; Glucose 126 mg/dl (70-99); Magnesium 1.9 mg/dl (1.6-2.3); Phosphorus 3.4 mg/dl (2.5-4.5); Potassium 3.2 mmol/L (3.5-5.1); Sodium 140 mmol/L (135-145); eGFR 15.23
[2024-10-01 05:29] LABS: Absolute Neutrophils -Man Diff 6.8 10^3/uL (1.4-6.5); Band Neutrophils 12 % (0-3); Segmented Neutrophils 38 % (42-75)
[2024-10-01 05:30] LABS: Atypical Lymphocytes 4 %; Lymphocytes 23 % (20-51); Metamyelocytes 3 % (-); Monocytes 9 % (2-9); Myelocytes 11 % (-)
[2024-10-01 05:31] LABS: Normal RBC Morphology Yes; Platelets Checked Yes; Total Cells Counted 100
[2024-10-01] MEDS: KCL 40 MEQ PO (05:45)
--- NOTE | 2024-10-01 05:47 | PTCARENOTE ---
40 meq kcl po given as ordered
[2024-10-01] MEDS: LR 1000 IV (07:15)
--- NOTE | 2024-10-01 08:17 | W.PN.HOSP.TC ---
Today's Communication/Plan
-
Transfer to telemetry, patient has been stable
Anticipate discharge to SNF tomorrow
Assessment / Plan
Assessment / Plan
Physical Exam
General: no acute distress resting comfortably in bed
HEENT: NormoCephalic, Anicteric, PERRLA, [place] Conjunctivae, Symmetric face, no facial droop
Respiratory: Clear; No Wheezes, Rales or Rhonchi
Cardiac: S1/S2 Irregularly Irregular rhythm
GI: Soft, Non Distended, Normal Bowel Sounds, nontender
Musculoskeletal: No Clubbing, No Cyanosis and No Edema
Skin: Warm and Dry; No Rash
Neuro: AO x 2 disoriented to time, speaks minimally but fluent coherent, flat affect, symmetric strength upper and lower ext's, Left handed per patient
Psych: Calm
Assessment/Plan
74M hx HTN DM BPH ex-smoker bladder sx for precancerous lesions here with diarrhea and acute renal failure. Developed new onset afib overnight though rate controlled. Severe electrolyte abn's hypokalemia and metabolic acidosis. AMS concerning for
metabolic encephalopathy (most likely) vs absence sz d/o vs stroke. Hypotensive/soft pressures, patient admitted to Tele was transferred to IMU for closer monitoring.
#Acute renal failure 2/2 diarrheal losses/dehydration
# hx BPH
#Metabolic Acidosis
#Severe Hypokalemia
-monitor and replete K as necessary
- Consult nephrology appreciated patient improving, HD not indicated at this time, IVF NS switched to Bicarb gtt later switched to LR following improvement bicarb
- Continue Ny catheter to monitor intake output
-Flomax held due to hypotension since resumed with improvement in pressures
-PT/OT appreciated SNF rehab, shuffling gait noted
CT abdomen pelvis without IV contrast:
1. Dilated air and fluid-filled loops of small bowel, mainly involving the mid to distal small bowel. Fluid and air present within the colon
without collapse, although without significant distention. Suggestion of mild wall thickening of colonic and small bowel loops.
Findings would be suggestive of enterocolitis. Differential consideration of adynamic ileus.
No convincing evidence for bowel obstruction or free intraperitoneal air.
2. Small hyperdense cysts present within each kidney. Small left-sided nephroliths.
3. Ny catheter within the bladder. Calcification within the left side of the bladder compatible with bladder calculus.
4. Small pericardial effusion, mainly anteriorly, measuring up to 1.5 cm in thickness.
#Hypotension - RESOLVED - secondary to dehydration/diarrheal losses
#Hx HTN
briefly on low dose midodrine with holding parameters since discontinued w/ improvement in pressures
Per patient's nurse Levophed was ordered at some point but never started or needed.
home Losartan resumed with holding parameters
Diarrhea resolved at this time.
#Diarrhea likely secondary to Acute colitis viral versus bacterial
-Per patient's nurse, last bowel movement was sometime 09/29/24-09/30/24 overnight
-follow stool studies
-Norovirus and Cdiff neg
- IV Zosyn 2.25 g Q6 renal dose switched to Augmentin renal dose, probiotic added/continue
-IM Tigan prn nausea vomiting
-Low Residue Diet
#AMS
#Likely Toxic Metabolic Encephalopathy vs absence sz vs stroke
#Suspected Parkinson
09/29 Examined multiple times throughout the day d/t prior assessments/reports of left sided weakness, facial droop, unresponsiveness, sitting in chair with blank stare after participating with PT/OT. Consistently alert conversant (though paucity
of speech) with symmetric face and strength noted throughout remainder of day
CT head appreciated no acute abn's
Neuro consult appreciated Parkinsonism, cont home ASA 81 mg daily, Brain MRI noted no acute abn's
#New Onset Afib rate controlled
Cardio eval appreciated no plan for rhythm control at this time during acute illness
Eliquis 5 mg BID
Coreg 6.25mg bid
Echo
# Prolonged QTc-QTc 494 MS
-minimize/avoid us of QT prolonging agents as possible
#reported hx DM2
-A1c 6.1 prediabetic
- no need for routine FS or sliding scale at this time.
#Hx iron deficiency
-Continue iron supplement
#Bladder surgery with precancerous lesions removed
#BPH
#Former smoker
VTE prophylaxis Subcu heparin
Full code
Discussed with patient and patient's Lnua
Anticipated Discharge: Within 24 hours
Subjective/Interval History
-
Date of Service: October 01, 2024
Patient was seen and examined. No new symptoms or complaints.
Objective Data
-
Labs:
Laboratory Results
10/01/24
03:07
WBC 13.6 H
Hgb 11.0 L
Hct 30.9 L
Plt Count 182
Sodium 140
Potassium 3.2 L
Chloride 110 H
Carbon Dioxide 23
BUN 104 H*
Creatinine 3.9 H
Glucose 126 H
Calcium 8.2 L
Vital Signs:
Vital Signs
Temp Pulse Resp BP Pulse Ox
98.8 F 64 11 153/94 99
10/01/24 04:00 10/01/24 06:00 10/01/24 06:00 10/01/24 06:00 10/01/24 04:00
I&O
09/30/24 10/01/24 10/02/24
06:59 06:59 06:59
Intake Total 3190 / 3340 4170 / 4170
Output Total 1175 / 1175 2425 / 2425
Balance 2014 1745 / 1745
[2024-10-01] MEDS: COZAAR 100 MG PO (08:29)
[2024-10-01] MEDS: AUGMENTIN 500 MG/125 MG 1 TABLET PO ×2 (08:29→19:59)
[2024-10-01] MEDS: NEUTRA-PHOS POWDER PACKET 250 MG PO (08:30)
[2024-10-01] MEDS: THERAGRAN 0.5 TABLET PO ×2 (08:30→19:59)
[2024-10-01] MEDS: HEPARIN 5000 UNITS SC (08:30)
[2024-10-01] MEDS: FLORASTOR 250 MG PO ×2 (08:30→19:59)
--- NOTE | 2024-10-01 09:11 | W.PN.NEPH.PH ---
Today's Communication / Plan
-
IVF
Assessment/Plan
-
74-year-old male with history hypertension, diabetes presenting to the emergency department via EMS for evaluation of 5 days of diarrhea and generalized weakness. Patient's states he has had multiple episodes of nonbloody diarrhea since
Tuesday. He has had 1 episode of vomiting.
BUN 145 creatinine 8
Impression.
Acute kidney injury likely secondary to diarrhea and prerenal.
Diarrhea enterocolitis on CAT scan.
Diabetes.
Hypertension.
Plan
replete K
IVF NSS
stop Phos
follow BMP
dyson no longer needed
-
-
Date of Service: October 01, 2024
CC / HPI / ROS
-
Chief Complaint:
Diarrhea
JESSICA
History of Present Illness:
Presents with diarrhea nausea vomiting significant azotemia.
JESSICA/Cr down to 3.9
BUN improving 104
BP stable
K low 3.2
acidosis resolved
Review of Systems:
no CP/SOB
Diarrhea resolved
nonoliguric
Labs
-
Labs:
WBC 13.6 10^3/uL (4.8-10.8) H 10/01/24 03:07
RBC 3.63 10^6/uL (4.70-6.10) L 10/01/24 03:07
Hgb 11.0 g/dL (13.0-18.0) L 10/01/24 03:07
Hct 30.9 % (39.0-52.0) L 10/01/24 03:07
Plt Count 182 10^3/uL (130-400) 10/01/24 03:07
Sodium 140 mmol/L (135-145) 10/01/24 03:07
Potassium 3.2 mmol/L (3.5-5.1) L 10/01/24 03:07
Chloride 110 mmol/L (98-107) H 10/01/24 03:07
Carbon Dioxide 23 mmol/L (22-30) 10/01/24 03:07
BUN 104 mg/dl (9-20) H* 10/01/24 03:07
Creatinine 3.9 mg/dL (0.7-1.3) H 10/01/24 03:07
eGFR 15.23 10/01/24 03:07
Glucose 126 mg/dl (70-99) H 10/01/24 03:07
Calcium 8.2 mg/dl (8.4-10.2) L 10/01/24 03:07
Phosphorus 3.4 mg/dl (2.5-4.5) 10/01/24 03:07
Albumin 2.5 g/dl (3.5-5.0) L 09/30/24 05:24
Physical Exam
-
Vital Signs:
Vital Signs
Temp Pulse Resp BP Pulse Ox
97.6 F 64 11 153/94 99
10/01/24 08:51 10/01/24 06:00 10/01/24 06:00 10/01/24 06:00 10/01/24 04:00
Cardiovascular:: Regular rate and rhythm
Respiratory:: Bilateral: CTA
Lung Excursion:: Normal
Abdomen:: Nontender and Soft
Bowel Sounds:: Normal
Extremity Edema:: None: Bilateral:
--- NOTE | 2024-10-01 09:38 | W.PN.CD ---
Today's Communication / Plan
-
start eliquis 5mg bid
add coreg 6.25mg bid
echo
Impression / Plan
-
I/P: 74M with with CKD 3a, prior bladder cancer (2019) hypertension, dyslipidemia, SRAVANTHI, and BPH who presented to the emergency department with a chief complaint of weakness.
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
Paroxysmal atrial fibrillation, new
- Now back in sinus rhythm with frequent PAC's
- Oral Anticoagulation: start eliquis 5mg bid
- [id number]: Score at least 3 (HTN, age 75 or more)
- add coreg 6.25mg bid
- echo
JESSICA on CKD3a
- in setting of severe diarrhea, volume depletion
- Creatinine was 8.5. Now down to 3.9.
- BUN 41 creatinine 1.63 in April
Diarrhea
- Enterocolitis on CT, per primary service
- Significant fluid depletion. Status post IV fluids. Patient is improved significantly.
HTN
-BP is uncontrolled
-he continues on losartan 100mg daily
-add coreg 6.25mg bid
Hypokalemia, replete
Hyponatremia, resolved-likely due to hypovolemia
Abnormal EKG
-nonspecific ST abnormality
-echo echo
Prediabetes, last A1c 6%
Physical Exam
Vital Signs/Labs
Vital Signs
Temp Pulse Resp BP Pulse Ox
97.6 F 64 11 153/94 99
10/01/24 08:51 10/01/24 06:00 10/01/24 06:00 10/01/24 06:00 10/01/24 04:00
09/30/24 10/01/24 10/02/24
06:59 06:59 06:59
Actual Weight 77.8 kg 80.6 kg
10/01/24 03:07
10/01/24 03:07
APTT 30.4 Sec (23.4-35.0) 09/29/24 02:51
Magnesium 1.9 mg/dl (1.6-2.3) 10/01/24 03:07
LAB Results
09/29/24
02:51
Troponin I 0.020
Physical Exam
Constitutional: No acute distress
EENT: Moist mucous membranes
Cardiovascular: Pedal edema is absent, JVD pressure is normal, Systolic murmur absent and Rhythm/rate is irregular
Respiratory: Respiratory effort normal and Lungs clear to auscul.
Neuro/Psych: AO x 3
Data Reviewed
-
Date of Service: October 01, 2024
EKG: Other (Tele: , fany PAC's)
Labs: Labs Reviewed by me
[2024-10-01] MEDS: KCL 270 MEQ IV (11:32)
[2024-10-01] MEDS: COREG 6.25 MG PO ×2 (11:34→20:00)
[2024-10-01] MEDS: NSS 1000 IV ×2 (11:34→21:05)
[2024-10-01] MEDS: ELIQUIS 5 MG PO ×2 (11:34→21:05)
--- NOTE | 2024-10-01 16:20 | CM ---
CM follwoing re: discharge planning.
Reviewed pt's chart, met with pt.
PT and OT evaluations noted - SNF level of care recommended. Pt is aware, expressed his agreement. A list of SNFs provided. pt preferred following SNFs: [facility], [facility] or [facility]. A referral to above SNFs made.
D/C plan: preferred SNF.
CM will follow to assist pt with discharge to a preferred SNF.
--- NOTE | 2024-10-01 16:38 | PTCARENOTE ---
Pt received in bed @ 0700. Oriented to self. Able to state that he is in hospital but unable to determine which one. Guessed year as 1924. Neuro assessment as documented. Denying pain. SaO2 97% on room air. Diminished breath sounds. Sinus
gala/Sinus rhythm with PAC's on teletypesetter monitor. SBP's 150s - 160s. New order for Losartan and Coreg. Hyperactive bowel sounds. No BM observed. Placed on standard precaution by infectious prevention after stool samples resulted. Ny in place
draining clear yellow urine. LR's changed to NSS @ 80ml/hr. KCl 40meq IV administered. ECHO completed at bedside. Downgraded to telemetry and brought to floor.
[2024-10-01] MEDS: FLOMAX 0.4 MG PO (17:35)
[2024-10-01] MEDS: FEOSOL 325 MG PO (17:35)
--- NOTE | 2024-10-01 18:35 | PTCARENOTE ---
Pt's requested all 4 side rails up at this time. Pt relaxed and does not attempt to get up without assistance. at bedside.
[2024-10-02 03:55] VITALS: BP 140/82
[2024-10-02 06:00] VITALS: BMI 24.6
[2024-10-02 07:13] VITALS: BP 153/84
[2024-10-02] MEDS: AUGMENTIN 500 MG/125 MG 1 TABLET PO (07:42)
[2024-10-02] MEDS: FLORASTOR 250 MG PO ×2 (07:42→20:05)
[2024-10-02] MEDS: ELIQUIS 5 MG PO ×2 (07:43→20:05)
[2024-10-02] MEDS: THERAGRAN 0.5 TABLET PO ×2 (07:43→20:05)
[2024-10-02] MEDS: COZAAR 100 MG PO (07:44)
[2024-10-02] MEDS: COREG 6.25 MG PO ×2 (07:44→20:05)
[2024-10-02 08:17] LABS: Blood Urea Nitrogen 72 mg/dl (9-20); Calcium 7.9 mg/dl (8.4-10.2); Carbon Dioxide 26 mmol/L (22-30); Chloride 113 mmol/L (98-107); Estimated Creatinine Clearance 30 ml/min; Glucose 133 mg/dl (70-99); Magnesium 1.7 mg/dl (1.6-2.3); Phosphorus 3.5 mg/dl (2.5-4.5); Potassium 3.7 mmol/L (3.5-5.1); Sodium 143 mmol/L (135-145); eGFR 28.71
[2024-10-02 08:26] LABS: Hemoglobin 10.5 g/dL (13.0-18.0); Mean Corp Hgb Conc. 33.9 g/dL (33.0-37.0); Mean Corpuscular Hgb 30.4 pg (27.0-31.0); Mean Corpuscular Volume 89.9 fL (80.0-94.0); Mean Platelet Volume 11.3 fL (7.4-10.4); Platelet Count 166 10^3/uL (130-400); Red Blood Cell Count 3.45 10^6/uL (4.70-6.10); Red Cell Dist. Width 13.5 % (11.5-14.5); White Blood Cell Count 15.5 10^3/uL (4.8-10.8)
--- NOTE | 2024-10-02 09:45 | W.PN.CD ---
Today's Communication / Plan
-
Check sinus rhythm EKG to see if ST-T changes improve
Impression / Plan
-
I/P: 74M with with CKD 3a, prior bladder cancer (2019) hypertension, dyslipidemia, SRAVANTHI, and BPH who presented to the emergency department with a chief complaint of weakness.
Outpatient fund controller: None prior to arrival
Paroxysmal atrial fibrillation, new
- Maintaining sinus
- Oral Anticoagulation: Tolerating new Eliquis 5mg bid
- [id number]: Score at least 3 (HTN, age 75 or more)
- Tolerating new Coreg 6.25mg bid => mild sinus gala, so wont increase BB
- echo => OK see below
Abnormal EKG => nonspecific ST abnormality
- echo OK, see below
- Check EKG now in sinus
Mild to moderate aortic insuf
- Will follow over time
JESSICA on CKD3a, from volume depletion, prerenal
- Admit BUN 145 , Cr 8.1 ==> now BUN 72, Cr 2.3
- BUN 41 creatinine 1.63 in April,
Diarrhea
- Enterocolitis on CT, per primary service
- Significant fluid depletion. Status post IV fluids. Patient is improved significantly.
HTN, improving: losartan 100mg daily and new coreg 6.25mg bid
Prediabetes, last A1c 6%
Subjective: No Cp or dyspnea.
Data:
Echo 10/01/2024:
LVEF 50-55%. Stage I diastolic dysfunction
Mildly dilated left atrium.
Mild to moderate aortic regurgitation.
No prior study available for comparison.
Physical Exam
Vital Signs/Labs
Vital Signs
Temp Pulse Resp BP Pulse Ox
98.1 F 58 16 153/84 95
10/02/24 07:13 10/02/24 07:44 10/02/24 07:13 10/02/24 07:44 10/02/24 07:13
10/01/24 10/02/24 10/03/24
06:59 06:59 06:59
Actual Weight 80.6 kg 82.1 kg
10/02/24 06:53
10/02/24 06:53
APTT 30.4 Sec (23.4-35.0) 09/29/24 02:51
Magnesium 1.7 mg/dl (1.6-2.3) 10/02/24 06:53
Physical Exam
Constitutional: No acute distress
EENT: Anicteric
Cardiovascular: Rhythm & rate is regular and Pedal edema is absent
Respiratory: Respiratory effort normal and Lungs clear to auscul.
GI: Soft and Distention absent
Neuro/Psych: AO x 3
Data Reviewed
-
Date of Service: October 02, 2024
--- NOTE | 2024-10-02 09:48 | PTCARENOTE ---
Patient's dyson was removed at 0600 today. Patient has voided successfully in bedside commode since. No complaints of distention or abdominal pain. Plan of care ongoing.
[2024-10-02 09:54] LABS: Absolute Neutrophils -Man Diff 8.9 10^3/uL (1.4-6.5); Atypical Lymphocytes 2 %; Band Neutrophils 8 % (0-3); Eosinophils 2 % (0-6); Lymphocytes 16 % (20-51); Metamyelocytes 2 % (-); Monocytes 8 % (2-9); Myelocytes 12 % (-); Normal RBC Morphology Yes; Platelets Checked Yes; Segmented Neutrophils 50 % (42-75); Total Cells Counted 100
--- NOTE | 2024-10-02 10:01 | W.PN.NEPH.PH ---
Today's Communication / Plan
-
IVF
Assessment/Plan
-
74-year-old male with history hypertension, diabetes presenting to the emergency department via EMS for evaluation of 5 days of diarrhea and generalized weakness. Patient's states he has had multiple episodes of nonbloody diarrhea since
Tuesday. He has had 1 episode of vomiting.
BUN 145 creatinine 8
Impression.
Acute kidney injury likely secondary to diarrhea and prerenal.
Diarrhea enterocolitis on CAT scan.
Diabetes.
Hypertension.
Plan
replete K prn
IVF 1/2NS today
follow BMP
-
-
Date of Service: October 02, 2024
CC / HPI / ROS
-
Chief Complaint:
Diarrhea
JESSICA
History of Present Illness:
Presents with diarrhea nausea vomiting significant azotemia.
JESSICA/Cr down to 2.3
BUN improving 72
BP stable high
K up to 3.7
acidosis resolved
Review of Systems:
no CP/SOB
Diarrhea resolved
nonoliguric
Labs
-
Labs:
WBC 15.5 10^3/uL (4.8-10.8) H 10/02/24 06:53
RBC 3.45 10^6/uL (4.70-6.10) L 10/02/24 06:53
Hgb 10.5 g/dL (13.0-18.0) L 10/02/24 06:53
Hct 31.0 % (39.0-52.0) L 10/02/24 06:53
Plt Count 166 10^3/uL (130-400) 10/02/24 06:53
Sodium 143 mmol/L (135-145) 10/02/24 06:53
Potassium 3.7 mmol/L (3.5-5.1) 10/02/24 06:53
Chloride 113 mmol/L (98-107) H 10/02/24 06:53
Carbon Dioxide 26 mmol/L (22-30) 10/02/24 06:53
BUN 72 mg/dl (9-20) H 10/02/24 06:53
Creatinine 2.3 mg/dL (0.7-1.3) H 10/02/24 06:53
eGFR 28.71 10/02/24 06:53
Glucose 133 mg/dl (70-99) H 10/02/24 06:53
Calcium 7.9 mg/dl (8.4-10.2) L 10/02/24 06:53
Phosphorus 3.5 mg/dl (2.5-4.5) 10/02/24 06:53
Albumin 2.5 g/dl (3.5-5.0) L 09/30/24 05:24
Physical Exam
-
Vital Signs:
Vital Signs
Temp Pulse Resp BP Pulse Ox
98.1 F 58 16 153/84 95
10/02/24 07:13 10/02/24 07:44 10/02/24 07:13 10/02/24 07:44 10/02/24 09:50
Cardiovascular:: Regular rate and rhythm
Respiratory:: Bilateral: CTA
Lung Excursion:: Normal
Abdomen:: Nontender and Soft
Bowel Sounds:: Normal
Extremity Edema:: None: Bilateral:
[2024-10-02 11:01] VITALS: BP 135/67
--- NOTE | 2024-10-02 11:19 | CM ---
patient seen at bedside with
tt PT/OT for updated eval- last note 09/29 (at that time rec SNF)
Referrals in [facility]
states would prefer to take him home
PLAN: SNF, pending bed availability - await updated PT/OT notes
--- NOTE | 2024-10-02 11:24 | W.PN.HOSP.TC ---
Today's Communication/Plan
-
Continue IV fluids, appreciate nephrology
New leukocytosis -- developing UTI? Recheck UA, abdominal x-ray, chest x-ray
Assessment / Plan
Assessment / Plan
Physical Exam
General: Not in acute distress, resting comfortably in bed
HEENT: Normocephalic, Atraumatic
Respiratory: Clear to Auscultation Bilaterally
Cardiac: S1/S2 Irregularly Irregular rhythm
GI: Soft, Non Distended, Normal Bowel Sounds, nontender
Musculoskeletal: No Cyanosis and No Edema
Skin: Warm and Dry
Neuro: AO x 2 disoriented to time, speaks minimally but fluent coherent, flat affect, symmetric strength upper and lower ext's, Left handed per patient
Psych: Calm
Assessment/Plan
74M hx HTN DM BPH ex-smoker bladder sx for precancerous lesions here with diarrhea and acute renal failure. Developed new onset afib overnight though rate controlled. Severe electrolyte abn's hypokalemia and metabolic acidosis. AMS concerning for
metabolic encephalopathy (most likely) vs absence sz d/o vs stroke. Hypotensive/soft pressures, patient admitted to Tele was transferred to IMU for closer monitoring.
#Acute renal failure 2/2 diarrheal losses/dehydration
# hx BPH
#Metabolic Acidosis
#Severe Hypokalemia
-Continue IV fluids
-monitor and replete K as necessary
- Consult nephrology appreciated patient improving, HD not indicated at this time, IVF NS switched to Bicarb gtt later switched to LR following improvement bicarb
- Continue Ny catheter to monitor intake output
-Flomax previously held due to hypotension since resumed with improvement in pressures
-PT/OT appreciated SNF rehab, shuffling gait noted
CT abdomen pelvis without IV contrast:
1. Dilated air and fluid-filled loops of small bowel, mainly involving the mid to distal small bowel. Fluid and air present within the colon
without collapse, although without significant distention. Suggestion of mild wall thickening of colonic and small bowel loops.
Findings would be suggestive of enterocolitis. Differential consideration of adynamic ileus.
No convincing evidence for bowel obstruction or free intraperitoneal air.
2. Small hyperdense cysts present within each kidney. Small left-sided nephroliths.
3. Ny catheter within the bladder. Calcification within the left side of the bladder compatible with bladder calculus.
4. Small pericardial effusion, mainly anteriorly, measuring up to 1.5 cm in thickness.
#Hypotension - RESOLVED - secondary to dehydration/diarrheal losses
#Hx HTN
briefly on low dose midodrine with holding parameters since discontinued w/ improvement in pressures
Per patient's nurse Levophed was ordered at some point but never started or needed.
home Losartan resumed with holding parameters
Diarrhea resolved at this time.
#Diarrhea likely secondary to Acute colitis viral versus bacterial
-follow stool studies
-Norovirus and Cdiff neg
- IV Zosyn 2.25 g Q6 renal dose switched to Augmentin renal dose, probiotic added/continue
-IM Tigan prn nausea vomiting
-Low Residue Diet
#New Leukocytosis
-Unclear etiology, no clear sign or symptom of infection
-Monitor CBC
-Check CXR, AXR, repeat UA
#AMS
#Likely Toxic Metabolic Encephalopathy vs absence sz vs stroke
#Suspected Parkinson
09/29 Examined multiple times throughout the day d/t prior assessments/reports of left sided weakness, facial droop, unresponsiveness, sitting in chair with blank stare after participating with PT/OT. Consistently alert conversant (though paucity
of speech) with symmetric face and strength noted throughout remainder of day
CT head appreciated no acute abn's
Neuro consult appreciated Parkinsonism, cont home ASA 81 mg daily, Brain MRI noted no acute abn's
#New Onset Afib rate controlled
Cardio eval appreciated no plan for rhythm control at this time during acute illness
Eliquis 5 mg BID
Coreg 6.25mg bid -- will not increase due to mild sinus bradycardia
Echo
# Prolonged QTc-QTc 494 MS
-minimize/avoid us of QT prolonging agents as possible
#reported hx DM2
-A1c 6.1 prediabetic
- no need for routine FS or sliding scale at this time.
#Hx iron deficiency
-Continue iron supplement
#Bladder surgery with precancerous lesions removed
#BPH
#Former smoker
VTE prophylaxis Subcu heparin
Full code
Anticipated Discharge: 24 - 48 hours
Subjective/Interval History
-
Date of Service: October 02, 2024
Patient was seen and examined. He reported feeling fine, denied any complaints or diarrhea.
Objective Data
-
Labs:
Laboratory Results
10/02/24
06:53
WBC 15.5 H
Hgb 10.5 L
Hct 31.0 L
Plt Count 166
Sodium 143
Potassium 3.7
Chloride 113 H
Carbon Dioxide 26
BUN 72 H
Creatinine 2.3 H
Glucose 133 H
Calcium 7.9 L
Vital Signs:
Vital Signs
Temp Pulse Resp BP Pulse Ox
98.2 F 64 20 135/67 96
10/02/24 11:01 10/02/24 11:01 10/02/24 11:01 10/02/24 11:01 10/02/24 11:01
I&O
10/01/24 10/02/24 10/03/24
06:59 06:59 06:59
Intake Total 4170 / 4295 2990.0 / 2990.0
Output Total 2425 / 2425 3150 / 3150
Balance 1745 / 1870 -160.0 / -160.0
[2024-10-02] MEDS: 0.45%NACL 1000 IV (12:48)
[2024-10-02 15:54] VITALS: BP 149/81
[2024-10-02 16:16] LABS: Urine Albumin 1+ (Neg - Trace); Urine Bilirubin Negative (Negative); Urine Character Clear (Clear); Urine Color Yellow; Urine Glucose 1+ (Negative); Urine Ketone Negative (Negative); Urine Leukocyte Negative (Negative); Urine Nitrite Negative (Negative); Urine Occult Blood 1+ (Negative); Urine Specific Gravity 1.015 (<1.030); Urine Urobilinogen Negative (Neg - 1+)
[2024-10-02 16:31] LABS: Urine Red Blood Cell 0-2 /HPF (0-2)
[2024-10-02] MEDS: FLOMAX 0.4 MG PO (17:05)
[2024-10-02] MEDS: FEOSOL 325 MG PO (17:05)
[2024-10-02 18:37] VITALS: BP 146/81
[2024-10-02] MEDS: AUGMENTIN 875 MG/125 MG 1 TABLET PO (20:05)
[2024-10-02 23:50] VITALS: BP 157/95
[2024-10-03] MEDS: 0.45%NACL 1000 IV (02:21)
[2024-10-03 03:15] VITALS: BP 154/88
[2024-10-03 06:00] VITALS: BMI 24.9
[2024-10-03 07:12] LABS: Hematocrit 29.8 % (39.0-52.0); Hemoglobin 10.1 g/dL (13.0-18.0); Mean Corp Hgb Conc. 33.9 g/dL (33.0-37.0); Mean Corpuscular Hgb 30.2 pg (27.0-31.0); Mean Corpuscular Volume 89.2 fL (80.0-94.0); Mean Platelet Volume 10.5 fL (7.4-10.4); Platelet Count 147 10^3/uL (130-400); Red Blood Cell Count 3.34 10^6/uL (4.70-6.10); Red Cell Dist. Width 13.5 % (11.5-14.5); White Blood Cell Count 14.6 10^3/uL (4.8-10.8)
[2024-10-03 07:15] LABS: Blood Urea Nitrogen 59 mg/dl (9-20); Calcium 7.8 mg/dl (8.4-10.2); Carbon Dioxide 25 mmol/L (22-30); Chloride 112 mmol/L (98-107); Estimated Creatinine Clearance 34 ml/min; Glucose 136 mg/dl (70-99); Magnesium 1.7 mg/dl (1.6-2.3); Phosphorus 3.3 mg/dl (2.5-4.5); Potassium 3.6 mmol/L (3.5-5.1); Sodium 141 mmol/L (135-145); eGFR 33.95
[2024-10-03 07:23] VITALS: BP 158/66
[2024-10-03] MEDS: FLORASTOR 250 MG PO (07:34)
[2024-10-03] MEDS: AUGMENTIN 875 MG/125 MG 1 TABLET PO (07:34)
[2024-10-03] MEDS: THERAGRAN 0.5 TABLET PO (07:35)
[2024-10-03] MEDS: ELIQUIS 5 MG PO (07:35)
[2024-10-03] MEDS: COZAAR 100 MG PO (07:35)
[2024-10-03] MEDS: COREG 6.25 MG PO (07:35)
[2024-10-03 07:55] VITALS: BP 160/99
--- NOTE | 2024-10-03 08:18 | W.PN.HOSP.TC ---
Today's Communication/Plan
-
Discharge today
Assessment / Plan
Assessment / Plan
Physical Exam
General: Not in acute distress, resting comfortably in bed
HEENT: Normocephalic, Atraumatic
Respiratory: Clear to Auscultation Bilaterally
Cardiac: S1/S2 Irregularly Irregular rhythm
GI: Soft, Non Distended, Normal Bowel Sounds, nontender
Musculoskeletal: No Cyanosis and No Edema
Skin: Warm and Dry
Neuro: AO x 2 disoriented to time, speaks minimally but fluent coherent, flat affect, symmetric strength upper and lower ext's, Left handed per patient
Psych: Calm
Assessment/Plan
74M hx HTN DM BPH ex-smoker bladder sx for precancerous lesions here with diarrhea and acute renal failure. Developed new onset afib overnight though rate controlled. Severe electrolyte abn's hypokalemia and metabolic acidosis. AMS concerning for
metabolic encephalopathy (most likely) vs absence sz d/o vs stroke. Hypotensive/soft pressures, patient admitted to Tele was transferred to IMU for closer monitoring, his condition improved and he was transferred back to telemetry.
#Acute renal failure -- prerenal -- likely secondary to diarrheal losses/dehydration
#History of Benign Prostatic Hyperplasia
#Metabolic Acidosis - RESOLVED
#Severe Hypokalemia - RESOLVED
-Stop IV fluids. Patient is tolerating well PO intake.
-Consult nephrology appreciated patient improving -- patient okay for discharge from nephrology standpoint
-PT/OT appreciated SNF rehab, shuffling gait noted
#Hypotension - RESOLVED - secondary to dehydration/diarrheal losses
#History of HTN
briefly on low dose midodrine with holding parameters since discontinued w/ improvement in pressures
Per patient's nurse Levophed was ordered at some point but never started or needed.
home Losartan resumed with holding parameters
Diarrhea resolved at this time.
-Follow-up with PCP for hypertension
#Diarrhea likely secondary to Acute enterocolitis viral versus bacterial
-follow stool studies
-Norovirus and Cdiff neg
- IV Zosyn 2.25 g Q6 renal dose switched to Augmentin renal dose, probiotic added/continue: continue Augmentin for 5 more days and follow-up with PCP
-IM Tigan prn nausea vomiting
-Low Residue Diet
#New Leukocytosis - IMPROVING
-Unclear etiology, no clear signs or symptom of infection-- today patient denied any fever, dizziness, chest pain, shortness of breath, and he also denied cough, abdominal pain, burning/pain with urination, back pain, diarrhea, new skin rash or any
other complaints
-CXR with POSSIBLE pneumonia
-Will add antibiotics for pneumonia coverage to be completed outpatient: Doxycycline 100 mg Q12H for 9 more doses, and Augmentin 875 Q12H for 9 more doses
-Reheck CBC outpatient
-Follow-up with PCP outpatient
-Incentive spirometer
#Small Bilateral Pleural Effusions
-Follow-up with PCP outpatient
-Will need repeat CXR outpatient
#AMS
#Likely Toxic Metabolic Encephalopathy vs absence sz vs stroke
#Parkinsonism/Suspected Parkinson
09/29 Examined multiple times throughout the day d/t prior assessments/reports of left sided weakness, facial droop, unresponsiveness, sitting in chair with blank stare after participating with PT/OT. Consistently alert conversant (though paucity
of speech) with symmetric face and strength noted throughout remainder of day
CT head appreciated no acute abn's
Neuro consult appreciated Parkinsonism, cont home ASA 81 mg daily, Brain MRI noted no acute abn's
#Paroxysmal atrial fibrillation, new
Cardio eval appreciated no plan for rhythm control at this time during acute illness
Eliquis 5 mg BID
Coreg 6.25 mg BID -- will not increase due to mild sinus bradycardia
Echo
STOP ASPIRIN as confirmed with research/program director Dr. Pineda today
#Mild to moderate aortic insufficiency
# Prolonged QTc on EKG - IMPROVED
-minimize/avoid us of QT prolonging agents as possible
#History of Type 2 Diabetes Mellitus?
#Prediabetes
-A1c 6.1 prediabetic
- no need for routine FS or sliding scale at this time.
#Hx iron deficiency
-Continue iron supplement
#Bladder surgery with precancerous lesions removed
#BPH
#Former smoker
VTE prophylaxis Subcu heparin
Full code
More than 30 minutes spent in discharge including
Final examination of the patient
Summarizing hospital stay
Instructions for continuing care to all relevant caregivers
Preparation of discharge records, prescriptions, and referral forms
Total time spent (in minutes): 45
Anticipated Discharge: Today
Subjective/Interval History
-
Date of Service: October 03, 2024
Patient was seen and examined. He denied any fever, dizziness, chest pain, shortness of breath, and he also denied cough, abdominal pain, burning/pain with urination, back pain, diarrhea, new skin rash or any other complaints. I discussed case with
patient's nurse who reported patient is doing well, and that he had a normal-colored bowel movement overnight which was loose but did not look like diarrhea.
Objective Data
-
Labs:
Laboratory Results
10/03/24
06:35
WBC 14.6 H
Hgb 10.1 L
Hct 29.8 L
Plt Count 147
Sodium 141
Potassium 3.6
Chloride 112 H
Carbon Dioxide 25
BUN 59 H
Creatinine 2.0 H
Glucose 136 H
Calcium 7.8 L
Vital Signs:
Vital Signs
Temp Pulse Resp BP Pulse Ox
98.1 F 61 14 160/99 97
10/03/24 07:55 10/03/24 07:55 10/03/24 07:55 10/03/24 07:55 10/03/24 07:55
I&O
10/02/24 10/03/24 10/04/24
06:59 06:59 06:59
Intake Total 2990.0 / 2990.0 2240 / 2240
Output Total 3150 / 3150 175 / 175
Balance -160.0 / -160.0 2064 / 2064
[2024-10-03 08:35] LABS: Absolute Neutrophils -Man Diff 9.3 10^3/uL (1.4-6.5); Band Neutrophils 5 % (0-3); Eosinophils 4 % (0-6); Lymphocytes 16 % (20-51); Metamyelocytes 5 % (-); Monocytes 4 % (2-9); Myelocytes 7 % (-); Segmented Neutrophils 59 % (42-75); Total Cells Counted 100
[2024-10-03 08:36] LABS: Normal RBC Morphology Yes; Platelets Checked Yes
[2024-10-03 08:53] LABS: Albumin 2.2 g/dl (3.5-5.0)
--- NOTE | 2024-10-03 10:44 | CM ---
Addendum entered by Genevieve Scanlon 10/03/24 13:00:
CM consult completed VN
Original Note:
Patient seen at bedside.
PT rec HH
Options discussed with patient. [facility] preferred
Notified Daria Salazar liaison [facility]
PLAN: home with [facility] when medically stable
--- NOTE | 2024-10-03 11:14 | VNURNOTE ---
Heel [facility]aper called to discuss [facility]. NO answer, left message awaiting return call. Referral placed in [facility].
[2024-10-03] MEDS: VIBRAMYCIN 100 MG PO (12:18)
[2024-10-03] MEDS: 0.45%NACL IV (12:20)
[2024-10-03 12:24] VITALS: BP 154/83
--- NOTE | 2024-10-03 12:38 | W.PN.CD ---
Today's Communication / Plan
-
Continue Eliquis and Coreg at current dose
Should see PCP in 2-3 weeks for a BP check and HTN med adjustment
We will arrange f/u in our office
Impression / Plan
-
I/P: 74M with with CKD 3a, prior bladder cancer (2019) hypertension, dyslipidemia, SRAVANTHI, and BPH who presented to the emergency department with a chief complaint of weakness.
Outpatient press supervisor: None prior to arrival
Paroxysmal atrial fibrillation, new
- Maintaining sinus
- Oral Anticoagulation: Tolerating new Eliquis 5mg bid
- [id number]: Score at least 3 (HTN, age 75 or more)
- Tolerating new Coreg 6.25mg bid => mild sinus gala, so wont increase BB
- echo => OK see below
Abnormal EKG => nonspecific ST abnormality
- echo OK
- Repeat EKG dramatically improved
- Perhaps related to underlying medical illness, can consider outpt stress test
Mild to moderate aortic insuf
- Will follow over time
JESSICA on CKD3a, from volume depletion, prerenal
- Admit BUN 145 , Cr 8.1 ==> now BUN 72, Cr 2.3
- BUN 41 creatinine 1.63 in April,
Diarrhea
- Enterocolitis on CT, per primary service
- Significant fluid depletion. Status post IV fluids. Patient is improved significantly.
HTN, improving: losartan 100mg daily and new coreg 6.25mg bid
Prediabetes, last A1c 6%
Subjective: No Cp or dyspnea.
Data:
Echo 10/01/2024:
LVEF 50-55%. Stage I diastolic dysfunction
Mildly dilated left atrium.
Mild to moderate aortic regurgitation.
No prior study available for comparison.
Physical Exam
Vital Signs/Labs
Vital Signs
Temp Pulse Resp BP Pulse Ox
97.1 F 67 17 154/83 96
10/03/24 12:24 10/03/24 12:24 10/03/24 12:24 10/03/24 12:24 10/03/24 12:24
10/02/24 10/03/24 10/04/24
06:59 06:59 06:59
Actual Weight 82.1 kg 83.178 kg
10/03/24 06:35
10/03/24 06:35
APTT 30.4 Sec (23.4-35.0) 09/29/24 02:51
Magnesium 1.7 mg/dl (1.6-2.3) 10/03/24 06:35
Physical Exam
Constitutional: No acute distress
EENT: Anicteric
Cardiovascular: Rhythm & rate is regular
Respiratory: Respiratory effort normal
GI: Soft
Neuro/Psych: Alert
Data Reviewed
-
Date of Service: October 03, 2024
--- NOTE | 2024-10-03 12:57 | W.PN.NEPH.PH ---
Today's Communication / Plan
-
ok for d/c
Assessment/Plan
-
74-year-old male with history hypertension, diabetes presenting to the emergency department via EMS for evaluation of 5 days of diarrhea and generalized weakness. Patient's states he has had multiple episodes of nonbloody diarrhea since
Tuesday. He has had 1 episode of vomiting.
BUN 145 creatinine 8
Impression.
Acute kidney injury likely secondary to diarrhea and prerenal.
Diarrhea enterocolitis on CAT scan.
Diabetes.
Hypertension.
Plan
cr improving to 2
tolerating pO
d/c IVF
BP slightly high back on ARB, coreg added
ok for d/c
BMP on Tuesday if not Tuesday with PCP
Nephro f/u
d/w and primary
-
-
Date of Service: October 03, 2024
CC / HPI / ROS
-
Chief Complaint:
Diarrhea
JESSICA
History of Present Illness:
Presents with diarrhea nausea vomiting significant azotemia.
JESSICA/Cr down to 2
BUN improving 59
BP stable high
K up to 3.6
acidosis resolved
Review of Systems:
no CP/SOB
Diarrhea resolved
nonoliguric
Labs
-
Labs:
WBC 14.6 10^3/uL (4.8-10.8) H 10/03/24 06:35
RBC 3.34 10^6/uL (4.70-6.10) L 10/03/24 06:35
Hgb 10.1 g/dL (13.0-18.0) L 10/03/24 06:35
Hct 29.8 % (39.0-52.0) L 10/03/24 06:35
Plt Count 147 10^3/uL (130-400) 10/03/24 06:35
Sodium 141 mmol/L (135-145) 10/03/24 06:35
Potassium 3.6 mmol/L (3.5-5.1) 10/03/24 06:35
Chloride 112 mmol/L (98-107) H 10/03/24 06:35
Carbon Dioxide 25 mmol/L (22-30) 10/03/24 06:35
BUN 59 mg/dl (9-20) H 10/03/24 06:35
Creatinine 2.0 mg/dL (0.7-1.3) H 10/03/24 06:35
eGFR 33.95 10/03/24 06:35
Glucose 136 mg/dl (70-99) H 10/03/24 06:35
Calcium 7.8 mg/dl (8.4-10.2) L 10/03/24 06:35
Phosphorus 3.3 mg/dl (2.5-4.5) 10/03/24 06:35
Albumin 2.2 g/dl (3.5-5.0) L 10/03/24 06:35
Physical Exam
-
Vital Signs:
Vital Signs
Temp Pulse Resp BP Pulse Ox
97.1 F 67 17 154/83 96
10/03/24 12:24 10/03/24 12:24 10/03/24 12:24 10/03/24 12:24 10/03/24 12:24
Cardiovascular:: Regular rate and rhythm
Respiratory:: Bilateral: CTA
Lung Excursion:: Normal
Abdomen:: Nontender and Soft
Bowel Sounds:: Normal
Extremity Edema:: None: Bilateral:
Ny Catheter: No
--- NOTE | 2024-10-03 13:11 | VNURNOTE ---
Double Cutter met with patient and to discuss [facility] nurse/therapy, visits, schedule and homebound status. Patient is agreeable and understands that visits at home will be 2-3 x per week to assess and teach medical management.
[facility] contact information provided. Patient is aware that [facility] will contact them for start of care after discharge from .
[facility] referral completed in [facility].
Patient will be going to his 's home at [address] [place] [address]. Per CM and , OT will provide walker and commode prior to discharge.
[2024-10-03 13:16] VITALS: BP 153/93; PULSE 60; O2SAT 97
[2024-10-03 15:13] VITALS: BP 171/92
== END 2024-10-03 16:18 | disposition home health service (06) | DRG 682 ==
LOC: 3 WEST ACU 15:31
PROVIDERS: Clinical Nurse Specialist Family Health; Internal Medicine; Nurse Practitioner Family; Physician Assistant; ADMITTING PHYSICIAN Internal Medicine; ATTENDING PHYSICIAN Hospitalist; CONSULT PHYSICIAN Internal Medicine Cardiovascular Disease; CONSULT PHYSICIAN Internal Medicine Nephrology; CONSULT PHYSICIAN Psychiatry & Neurology Neurology; EMERGENCY PHYSICIAN Emergency Medicine; FAMILY PHYSICIAN Family Medicine
DX: N17.9 Acute kidney failure, unspecified (principal); G93.41 Metabolic encephalopathy; I63.9 Cerebral infarction, unspecified; E87.20 Acidosis, unspecified; A04.9 Bacterial intestinal infection, unspecified; J90 Pleural effusion, not elsewhere classified; E87.1 Hypo-osmolality and hyponatremia; I31.39 Other pericardial effusion (noninflammatory); G40.909 Epilepsy, unspecified, not intractable, without status epilepticus; I12.9 Hypertensive chronic kidney disease with stage 1 through stage 4 chronic kidney disease, or unspecified chronic kidney disease; N18.31 Chronic kidney disease, stage 3a; E11.22 Type 2 diabetes mellitus with diabetic chronic kidney disease; N40.0 Benign prostatic hyperplasia without lower urinary tract symptoms; Z87.891 Personal history of nicotine dependence; I48.91 Unspecified atrial fibrillation; E87.6 Hypokalemia; E86.0 Dehydration; I95.9 Hypotension, unspecified; A08.4 Viral intestinal infection, unspecified; G20.C Parkinsonism, unspecified; I48.0 Paroxysmal atrial fibrillation; Z79.82 Long term (current) use of aspirin; Z79.899 Other long term (current) drug therapy; Z85.51 Personal history of malignant neoplasm of bladder; E78.00 Pure hypercholesterolemia, unspecified; Z80.0 Family history of malignant neoplasm of digestive organs; D64.9 Anemia, unspecified; I44.0 Atrioventricular block, first degree; I49.3 Ventricular premature depolarization; N21.0 Calculus in bladder
CPT/HCPCS: 51702; 51798; 70450; 70551; 71046; 74019; 74176; 80048; 80053; 81003; 81015; 82040; 82570; 82607; 82962; 83036; 83735; 83935; 84100; 84156; 84300; 84443; 84484; 85025; 85730; 87040; 87045; 87046; 87077; 87086; 87324; 87427; 87449; 87798; 89055; 93005; 93306; 96361; 96365; 97116; 97163; 97167; 97530; 97535; 99285

== ENCOUNTER → 2024-10-27 09:07 | Outpatient (REF) | payer MEDICARE, SELFPAY | LOC: RAD 09:07 | PROVIDERS: ATTENDING PHYSICIAN Physician Assistant | DX: J90 Pleural effusion, not elsewhere classified (principal) | CPT/HCPCS: 71046 ==

== ENCOUNTER → 2025-05-01 10:20 | Outpatient (REF) | payer MEDICARE, SELFPAY | LOC: RAD 10:20 | PROVIDERS: ATTENDING PHYSICIAN Family Medicine | DX: J90 Pleural effusion, not elsewhere classified (principal) | CPT/HCPCS: 71046 ==